=== PATIENT | female | born 1940 | race Caucasian/White ===

== ENCOUNTER → 2016-11-14 | Outpatient (REF) | payer MEDICARE, MEDICAID ==
[~2016-11-14] MED LIST: /WARF25TA OR; ACET65TA OR; BACITAB3 PO; CHLO50TA PO; CIPR500T89 PO; FERR325T PO; FLAG500T PO; FLEXERIL OR; LISI-538 PO; LISI40TA OR; PANT40TA2 PO; PERC7.5T8 OR; SIMV40TA2 OR; SIMV40TA2 PO; SUCR1TAB56 PO; VITA10002 PO; VITA100066 PO; ZETI10TA OR; chlorthalidone OR
== END | disposition home or self-care (01) ==
LOC: M LAB REF 13:26
PROVIDERS: ATTEND Internal Medicine Medical Oncology
DX: C48.1 Malignant neoplasm of specified parts of peritoneum (principal)

== ENCOUNTER → 2016-11-21 | Outpatient (CLI) | payer MEDICARE, MEDICAID ==
--- NOTE | 2016-11-21 13:18 | REP ---
Abdominal series: Three views. History: Question obstruction. C. diff enteritis. Comparison study March 12, 2016. Findings: Upright chest radiograph shows an Xvemhx-J-Nqvf catheter via the right side with its tip in the expected location of the superior vena cava. The lungs are well inflated and clear. No infiltrate or free subdiaphragmatic air is seen. Heart size is normal. Supine and erect views of the abdomen show clips in right upper quadrant of the abdomen, sutures in the central pelvis, and a dystrophic calcification in the left upper quadrant unchanged from comparison radiographs. No large or small bowel dilation is seen. There are a few small colonic air fluid levels on the upright radiograph. No evidence of free air. Impression: Unremarkable bowel gas pattern. Postoperative changes. No evidence of obstruction. Signed by Javier Blevins MD 11/21/2016 02:59 P
== END ==
LOC: M LAB 12:17
PROVIDERS: ATTEND Internal Medicine Medical Oncology
DX: R10.813 Right lower quadrant abdominal tenderness (principal); R19.7 Diarrhea, unspecified; C48.2 Malignant neoplasm of peritoneum, unspecified

== ENCOUNTER → 2016-11-22 | Outpatient (REF) | payer MEDICARE, MEDICAID | LOC: M LAB REF 14:58 | PROVIDERS: ATTEND Internal Medicine Medical Oncology | DX: R19.7 Diarrhea, unspecified (principal) ==

== ENCOUNTER 2016-12-02 10:58 | Outpatient (CLI) | payer MEDICARE, MEDICAID ==
[~2016-12-02] VITALS: Ht 167.6 cm; Wt 96.6 kg
[~2016-12-02 10:58] MED LIST changes: +SODIUM CHLORIDE 0.9% INJ 10 ML SYR IV SCH
[2016-12-02] MEDS ORDERED: diphenhydrAMINE 50 MG CAP PO ONE (11:15)
[2016-12-02] MEDS ORDERED: ACETAMINOPHEN TAB 650MG DOSE (2X325MG) PO ONE (11:15)
== END 2016-12-02 15:00 | disposition home or self-care (01) ==
LOC: M INFU 10:58
PROVIDERS: ATTEND Internal Medicine Medical Oncology
DX: C56.9 Malignant neoplasm of unspecified ovary (principal); Z79.899 Other long term (current) drug therapy
CPT/HCPCS: 36415; 36430; 86850; 86900; 86901; 86920; P9016

== ENCOUNTER → 2016-12-05 | Outpatient (REF) | payer MEDICARE, MEDICAID ==
[~2016-12-05] MED LIST changes: -SODIUM CHLORIDE 0.9% INJ 10 ML SYR IV SCH
== END ==
LOC: M LAB REF 13:06
PROVIDERS: ATTEND Internal Medicine Medical Oncology
DX: C48.1 Malignant neoplasm of specified parts of peritoneum (principal)

== ENCOUNTER → 2016-12-26 | Outpatient (CLI) | payer MEDICARE, MEDICAID ==
[~2016-12-26] MED LIST changes: +GASTROGRAFIN SOLUTION 30ML (Q9963) As Ordered ONE; +ISOVUE-370 76% 100ML VIAL (Q9967) As Ordered ONE
--- NOTE | 2016-12-26 11:52 | REP ---
CT ABDOMEN AND PELVIS WITHOUT AND WITH IV CONTRAST: WITH ORAL CONTRAST. HISTORY: Ovarian carcinoma, reassessment. Comparison CT study is from June 27, 2016. CT CONTRAST DOSE: 100 mL of Isovue-[address] FINDINGS: Digital preliminary banner painter radiograph shows clips in the right upper quadrant post cholecystectomy. Bowel gas pattern is normal. The lung bases reveal two left lower lobe peripheral pleural-based nodular densities measuring 7 and 6 mm, respectively in greatest diameter. These are visible and are unchanged when compared with the March 04, [address] [facility]. Lung bases are otherwise clear. No pleural effusion is seen. The liver and the spleen are normal in size and homogeneous in texture on pre- and postcontrast CT imaging. There are clips in the gallbladder fossa. There is an annular peripherally calcified 1.1 x 1.4 cm area at the splenic hilus on the left, consistent with a small splenic artery aneurysm. This is unchanged. No pancreatic lesion is seen. The right pericaval tunde mass at the level of the renal vascular pedicle is again seen. This measures 5.2 x 3.1 x 6.3 cm in overall dimension. On the previous scan of 06/27/2016 by my measurement, the lesion was 5.7 x 3.2 x 6.6 cm. No other retroperitoneal tunde mass is seen. There are two simple cysts in the right kidney as before. No hydronephrosis or renal mass is seen. There is no evidence of diffuse ascites. Small and large intestinal bowel loops are unremarkable in the abdomen and pelvis other than left colonic diverticulosis. There are fibroid changes in the uterus. No adnexal mass or cyst is seen. No pelvic mass or adenopathy is observed. Bone window settings show no bony destructive lesion. There are degenerative changes in the lumbar spine. IMPRESSION: The right retroperitoneal tunde mass persists although, perhaps, very slightly smaller than on June 27, [address]; 6.2 cm in greatest dimension. Left colonic diverticulosis. Postcholecystectomy. Right renal cysts. No other evidence of intra-abdominal or pelvic neoplastic disease. Signed by Javier Blevins MD 12/26/2016 01:31 P
== END ==
LOC: M RAD 08:44
PROVIDERS: ATTEND Internal Medicine Medical Oncology
DX: C56.9 Malignant neoplasm of unspecified ovary (principal); R91.8 Other nonspecific abnormal finding of lung field; I72.8 Aneurysm of other specified arteries; N28.1 Cyst of kidney, acquired; K57.90 Diverticulosis of intestine, part unspecified, without perforation or abscess without bleeding; D25.9 Leiomyoma of uterus, unspecified
CPT/HCPCS: 74178; Q9963; Q9967

== ENCOUNTER → 2016-12-31 | Outpatient (REF) | payer MEDICARE, MEDICAID ==
[~2016-12-31] MED LIST changes: -GASTROGRAFIN SOLUTION 30ML (Q9963) As Ordered ONE; -ISOVUE-370 76% 100ML VIAL (Q9967) As Ordered ONE
== END ==
LOC: M LAB REF 12:18
PROVIDERS: ATTEND Internal Medicine Medical Oncology
DX: C56.9 Malignant neoplasm of unspecified ovary (principal); C79.9 Secondary malignant neoplasm of unspecified site

== ENCOUNTER → 2017-01-07 | Outpatient (REF) | payer MEDICARE, MEDICAID | LOC: M LAB REF 12:52 | PROVIDERS: ATTEND Internal Medicine Medical Oncology | DX: C48.2 Malignant neoplasm of peritoneum, unspecified (principal) ==

== ENCOUNTER → 2017-01-13 | Outpatient (CLI) | payer MEDICARE, MEDICAID ==
[2017-01-13 18:39] LABS: CALCIUM LEVEL 9.1 MG/DL (8.8-10.2); CREATININE FOR GFR 1.38 MG/DL (0.55-1.02); GLOMERULAR FILTRATION RATE 39.6 (>39); POTASSIUM SERUM 3.3 MEQ/L (3.5-5.1)
== END ==
LOC: M SMT 11:24
PROVIDERS: ATTEND Urology
DX: N18.9 Chronic kidney disease, unspecified (principal)
CPT/HCPCS: 36415; 80048; G0463

== ENCOUNTER → 2017-01-15 | Outpatient (CLI) | payer MEDICARE, MEDICAID ==
--- NOTE | 2017-01-15 09:42 | REP ---
RENAL NUCLEAR SCAN WITH FLOW AND FUNCTION: Following the intravenous administration of 8.4 mCi of technetium-99m MAG 3, immediate flow images are obtained in the posterior projections showing somewhat greater degree of profusion of the right kidney compared to the left. Delayed renal function images are performed every minute for a period of 30 minutes in the posterior projection. Photopenic area in the lower pole of the right kidney is compatible with a cyst. This is seen on the CT of 12/26/2016. There is mild cortical uptake and excretion with no hydronephrosis. Split function is 40.9% on the left and 59.1% on the right. Time to peak is 3 minutes bilaterally. T1/2 on the left is 10.6 minutes and on the right is 14.1 minutes. Renal function curves are slightly shallow in their downward slopes. There is very mild postvoid residual in the urinary bladder after voiding. IMPRESSION: Minimally compromised renal function without urinary tract obstruction. Signed by Bin Barnhart MD 01/15/2017 12:42 P
== END ==
LOC: M RAD 07:45
PROVIDERS: ATTEND Urology
DX: N18.9 Chronic kidney disease, unspecified (principal)
CPT/HCPCS: 78707; A9562

== ENCOUNTER → 2017-02-19 | Outpatient (CLI) | payer MEDICARE, MEDICAID ==
[~2017-02-19] MED LIST changes: +CHLO25TA PO; +OXYC1TAB23 PO; +TYLE325T5 PO
--- NOTE | 2017-02-19 15:00 | REP ---
Chest two views HISTORY: Abdominal swelling Comparison: 03/12/2016 The lungs are clear. The heart is normal in size. The pulmonary vasculature is normal in appearance. Degenerative change is present in the thoracic spine. An Dchcbo-L-Hbtj catheter is present. IMPRESSION: No acute disease. Signed by Marco Shields MD 02/19/2017 02:51 P
[2017-02-19 20:00] LABS: MEAN CORPUSCULAR HEMOGLOBIN 31.6 pg (27.0-33.0); MEAN CORPUSCULAR HGB CONC 31.8 g/dl (32.0-36.5); MEAN CORPUSCULAR VOLUME 99.2 fl (80.0-96.0); RED CELL DISTRIBUTION WIDTH 12.9 % (11.5-14.5); WHITE BLOOD COUNT 6.6 K/mm3 (4.0-10.0)
[2017-02-19 20:02] LABS: INR 0.97
[2017-02-19 21:10] LABS: ALBUMIN 3.8 GM/DL (3.2-5.2); ALBUMIN/GLOBULIN RATIO 1.31 (1.00-1.93); BILIRUBIN,TOTAL 0.4 MG/DL (0.2-1.0); CALCIUM LEVEL 9.3 MG/DL (8.8-10.2); CREATININE FOR GFR 1.25 MG/DL (0.55-1.02); GLOMERULAR FILTRATION RATE 44.4 (>39); POTASSIUM SERUM 3.6 MEQ/L (3.5-5.1); TOTAL PROTEIN 6.7 GM/DL (6.4-8.2)
== END ==
LOC: M ADAMS 14:24
PROVIDERS: ATTEND Urology
DX: Z01.818 Encounter for other preprocedural examination (principal); R19.00 Intra-abdominal and pelvic swelling, mass and lump, unspecified site; Z79.899 Other long term (current) drug therapy
CPT/HCPCS: 36415; 71020; 80053; 85027; 85610; 85730; G0463

== ENCOUNTER → 2017-02-25 | Outpatient (CLI) | payer MEDICARE, MEDICAID ==
[~2017-02-25] MED LIST changes: +ISOVUE-370 76% 100ML VIAL (Q9967) As Ordered ONE; -OXYC1TAB23 PO; -TYLE325T5 PO
--- NOTE | 2017-02-25 17:27 | REP ---
CT ABDOMEN: REASON FOR EXAM: Followup mass. PRIOR EXAMINATION: 12/26/2016 was reviewed. CONTRAST UTILIZED: 100 mL Isovue-370. The lung bases are unchanged. There is a 6 mm sized nodule in the anterior basal segment of the left lower lobe laterally and there is an unchanged 3 mm sized nodule in the posterior basal segment of the right lower lobe. There are no pleural or pericardial effusions. The precontrast enhanced portion of the examination shows no change appearance of the hepatic or splenic densities. There are no nephroliths. The patient is status-post cholecystectomy. Contrast enhanced portion of the examination shows the liver and spleen to be unchanged. The pancreas is atrophic but unchanged. The adrenal glands and kidneys are unchanged. Bosniak class 1 right renal cyst are noted status quo. The abdominal aorta is unchanged. Once again, there is a retroperitoneal mass which is completely unchanged. This right sided retroperitoneal mass displaces anterior the right renal artery status quo. There are no new retroperitoneal masses. The bowel loops and their mesenteries and are again seen to be within normal limits. There is no free fluid or free air. CT PELVIS: Once again, calcific myomatous changes are seen in the uterus status quo. There is no evidence of pelvic side wall adenopathy. The bowel loops and their mesenteries are essentially unchanged remain within normal limits. There is no free fluid or free air. Bone window technique throughout the exam shows no change in the osseous structures. Spinal degenerative changes status quo. IMPRESSION:No significant change when compared to the prior exam with findings and retroperitoneal mass as described above. Signed by Zachery Amaya DO 02/26/2017 11:07 A
== END ==
LOC: M RAD 13:06
PROVIDERS: ATTEND Urology
DX: R19.00 Intra-abdominal and pelvic swelling, mass and lump, unspecified site (principal); R91.8 Other nonspecific abnormal finding of lung field; N28.1 Cyst of kidney, acquired
CPT/HCPCS: 74178; Q9967

== ENCOUNTER 2017-03-03 05:40 | Inpatient (IN) | payer MEDICARE, MEDICAID ==
[~2017-03-03] VITALS: Ht 167.6 cm; Wt 71.7 kg
[~2017-03-03 05:40] MED LIST changes: -ISOVUE-370 76% 100ML VIAL (Q9967) As Ordered ONE
[2017-03-03] MEDS ORDERED: LR 1,000 ML IV ONE (06:00)
[2017-03-03] MEDS ORDERED: BUPIVACAINE HCL 0.25% 30 ML VIAL As Ordered ONE (06:37)
[2017-03-03] MEDS ORDERED: LIDOCAINE 1% SDV INJ 30 ML VIAL As Ordered ONE (06:37)
[2017-03-03] MEDS ORDERED: LIDOCAINE 2% INJ 100 MG/5 ML SDV (FOR ANES.) As Ordered ONE (06:50)
[2017-03-03] MEDS ORDERED: ROCURONIUM BROMIDE 50 MG/5 ML VIAL As Ordered ONE ×2 (06:50→08:37)
[2017-03-03] MEDS ORDERED: PROPOFOL 200 MG/20 ML VIAL As Ordered ONE (06:50)
[2017-03-03] MEDS ORDERED: fentaNYL 250 MCG/5 ML INJECTION (J3010) As Ordered ONE (06:50)
[2017-03-03] MEDS ORDERED: MIDAZOLAM INJ 2 MG/2 ML VIAL (J2250) As Ordered ONE (06:50)
[2017-03-03] MEDS ORDERED: MORPHINE 2 MG/ML 1ML SYRINGE IV PRN (07:30)
[2017-03-03] MEDS ORDERED: ONDANSETRON 4MG/2ML VIAL (J2405) IV PRN ×2 (07:30→14:15)
[2017-03-03] MEDS ORDERED: ACETAMINOPHEN TAB 650MG DOSE (2X325MG) PO PRN (07:30)
[2017-03-03] MEDS ORDERED: PERCOCET 5MG/325MG TAB PO PRN (07:30)
[2017-03-03] MEDS: DOCUSATE SODIUM 100 MG CAP PO SCH ×2 (09:00→21:30)
[2017-03-03] MEDS ORDERED: fentaNYL 100 MCG/2 ML INJECTION (J3010) As Ordered ONE ×2 (10:13→14:03)
[2017-03-03] MEDS ORDERED: ePHEDrine SULFATE 25 MG/5 ML(5MG/ML) SYRINGE As Ordered ONE (10:52)
[2017-03-03] MEDS ORDERED: PHENYLephrine HCL 500 MCG/5 ML (100MCG/ML) SYRINGE (J2370) As Ordered ONE (10:53)
[2017-03-03] MEDS ORDERED: GLYCOPYRROLATE INJ 0.2 MG/ML 2 ML VIAL As Ordered ONE (12:36)
[2017-03-03] MEDS ORDERED: ONDANSETRON 4MG/2ML VIAL (J2405) As Ordered ONE (12:36)
[2017-03-03] MEDS ORDERED: NEOSTIGMINE 1MG/ML 5 ML SYRINGE (J2710) As Ordered ONE (12:36)
[2017-03-03] MEDS ORDERED: HYDROmorphone HCL 1 MG/ML SYRINGE (J1170) As Ordered ONE (13:44)
[2017-03-03] MEDS: HYDROmorphone HCL 1 MG/ML SYRINGE (J1170) IV PRN ×5 (13:45→14:05)
[2017-03-03] MEDS ORDERED: METOCLOPRAMIDE INJ 10MG/2ML VIAL (J2765) As Ordered ONE (14:03)
[2017-03-03] MEDS: fentaNYL 100 MCG/2 ML INJECTION (J3010) IV PRN ×4 (14:05→14:20)
--- NOTE | 2017-03-03 14:11 | ROOPDOC ---
[facility] Report Of Operation Report of Operation DATE OF PROCEDURE: 03/03/17 PREPROCEDURE DIAGNOSIS: Retroperitoneal Mass POSTPROCEDURE DIAGNOSIS: Retroperitoneal Mass PROCEDURE: Robotic-assisted Laparoscopic Excision of Retroperitoneal Lymph Node , Laparoscopic Lysis of Adhesions SURGEON: Keaton Nguyen MD LEGAL FINANCIAL SPECIALIST: Ana Maria Louis NP ANESTHESIA: General OPERATIVE INDICATIONS: This is a 76 year old female who with a history of metastatic ovarian carcinoma. She was found to have a 6cm paracaval mass, which did not respond to chemotherapy. After a discussion with her medical oncologist and gynecologic oncologist, it was recommended that she undergo surgical excision of this mass, given concern that it is a metastatic lesion. DESCRIPTION OF PROCEDURE: The patient was brought to the operating room and general anesthesia was induced. Prophylactic antibiotics were infused. A Blanco catheter was placed under sterile conditions. The patient was then placed in the left lateral decubitus position. All pressure points were appropriately padded and an axillary roll was placed. She was secured to the table with tape. The patient was then prepped and draped in the usual sterile fashion. The initial incision was for a 12 mm port in line with the 11th rib along the lateral rectus margin. A Veress needle was then utilized to achieve the pneumoperitoneum. A 12 mm port was then placed in through this incision and through which the camera was inserted. There were no injuries from Veress needle placement or initial trocar placement. A 5mm assistant commissioner port was placed just cephalad to the camera port, along the lateral rectus margin. I was not able to place any of the other ports under direct vision because of a moderate amount of omental adhesions to the abdominal wall. I then performed an extensive laparoscopic lysis of adhesions. Once this was done the abdominal wall was clear for insertion of the remaining ports. The right hand robotic port was placed along the costal margin. Another 5 mm port was placed just inferior to the xyphoid for access for a liver retractor. The 15 mm assistant commissioner port was placed just inferior to the camera port, also on the lateral rectus margin. The left hand robotic port was placed between the anterior-superior iliac spine and the umbilicus. The robot was then docked. We began by lifting up the liver with a laparoscopic locking Allis clamp. Next the right colon was dissected off of Gerota's fascia. We then Kocherized the duodenum. At this point the inferior vena cava (IVC) was identified. The paracaval node was readily seen just lateral to the IVC and under the right kidney. The gonadal vein was then ligated with Weck clips and transected in between. The node was then carefully dissected away from the IVC and the renal vein. While dissecting the node away from the renal vein, an incidental puncture was made into the side of the vein. This was closed with a 4-0 PDS suture in a [id number] fashion. Hemostasis was excellent after this point. On the inferior portion of the node a small vein and artery were identified. These were ligated Weck clips and then they were transected. We continued to dissect the lymph node on all sides using a combination of cold scissors and electrocautery until the node was completely free. The node was then placed in an Endocatch bag. Once done we checked for hemostasis and it appeared good. The surgical field was thoroughly irrigated and all the irrigation was suctioned out. We then placed Mike hemostatic agent along the lateral aspect of the IVC and in the area of the renal hilum. The robot was then undocked. We then used a Cade-Maru fascial closure device to place a #0 Vicryl free tie through the fascia of the 12 mm camera port site. The 15 mm assistant commissioner port site was then extended and we dissected down onto the fascia. The fascia was extended a little and the specimen was removed from the abdomen. It was then handed off the table to be sent for pathologic analysis. We then closed the fascia of the extraction incision using a running #0 Vicryl suture. At this point, the abdomen was reinsufflated and we looked back in with the camera and there was no bleeding underneath the extraction site. No abdominal contents were caught within the closure either. We then removed all the ports under direct vision and there was no bleeding from any of the port sites. At this point, the previously placed #0 Vicryl free tie was tied down and all the incisions were thoroughly irrigated. The subcutaneous tissue of the extraction incision was then reapproximated using interrupted #3-0 Vicryl suture. We then closed the skin of each site using a running #4-0 subcuticular Monocryl stitch. Local anesthetic was then applied to each incision and Dermabond was then applied and this marked the conclusion of the procedure. The patient was then taken out of the left lateral decubitus position, awakened from anesthesia and transported to the recovery room in stable condition. ESTIMATED BLOOD LOSS: 100 mL INTRAOPERATIVE COMPLICATIONS: None SPECIMENS: Retroperitoneal Mass PLAN: The patient will be admitted to the hospital postoperatively and she will be discharged home she is tolerating regular diet and when her pain is controlled. KEATON NGUYEN MD March 03, 2017 14:11
[2017-03-03] MEDS ORDERED: METOCLOPRAMIDE INJ 10MG/2ML VIAL (J2765) IV PRN (14:15)
[2017-03-03] MEDS ORDERED: MEPERIDINE INJ 25 MG/ML VIAL (J2175) IV PRN (14:15)
[2017-03-03] MEDS ORDERED: LR 1,000 ML IV SCH (14:15)
[2017-03-03 14:25] LABS: CALCIUM LEVEL 8.3 MG/DL (8.8-10.2); CREATININE FOR GFR 1.2 MG/DL (0.55-1.02); GLOMERULAR FILTRATION RATE 46.5 (>39)
[2017-03-03] MEDS ORDERED: HYDROmorphone HCL 1 MG/ML SYRINGE (J1170) IV PRN (14:45)
[2017-03-03 14:48] LABS: MEAN CORPUSCULAR HEMOGLOBIN 32.5 pg (27.0-33.0); MEAN CORPUSCULAR HGB CONC 33.2 g/dl (32.0-36.5); MEAN CORPUSCULAR VOLUME 97.9 fl (80.0-96.0); RED CELL DISTRIBUTION WIDTH 12.4 % (11.5-14.5); WHITE BLOOD COUNT 5.8 K/mm3 (4.0-10.0)
[2017-03-03 15:45] VITALS: BP 112/53
[2017-03-03] MEDS: NS 1,000 ML IV SCH (16:07)
[2017-03-03] MEDS: ceFAZolin SOD 1 GM in D5W MINI-BAG PLUS 50 ML IV SCH (16:07)
[2017-03-03 16:15] VITALS: BP 102/45
[2017-03-03 17:15] VITALS: BP 93/45
[2017-03-03 18:15] VITALS: BP 92/46
[2017-03-03 19:15] VITALS: BP 89/42
[2017-03-03] MEDS: SIMVASTATIN 40 MG TAB PO SCH (21:31)
[2017-03-03 22:00] VITALS: BP 88/40
[2017-03-04] VITALS (7 sets, daily range): BP systolic 80–105; BP diastolic 32–55
[2017-03-04] MEDS: ceFAZolin SOD 1 GM in D5W MINI-BAG PLUS 50 ML IV SCH (01:47)
[2017-03-04] MEDS: NS 1,000 ML IV SCH ×3 (01:48→16:26)
[2017-03-04 07:02] LABS: MEAN CORPUSCULAR HGB CONC 32.1 g/dl (32.0-36.5); MEAN CORPUSCULAR VOLUME 99.7 fl (80.0-96.0); RED CELL DISTRIBUTION WIDTH 12.4 % (11.5-14.5); WHITE BLOOD COUNT 4.3 K/mm3 (4.0-10.0)
[2017-03-04 07:27] LABS: CALCIUM LEVEL 7.8 MG/DL (8.8-10.2); CREATININE FOR GFR 1.13 MG/DL (0.55-1.02); GLOMERULAR FILTRATION RATE 49.8 (>39); POTASSIUM SERUM 3.5 MEQ/L (3.5-5.1)
[2017-03-04] MEDS ORDERED: MORPHINE 2 MG/ML 1ML SYRINGE IV PRN (08:00)
[2017-03-04] MEDS: DOCUSATE SODIUM 100 MG CAP PO SCH ×2 (08:09→20:27)
[2017-03-04] MEDS: PERCOCET 5MG/325MG TAB PO PRN ×2 (08:10→16:56)
--- NOTE | 2017-03-04 08:53 | IPNPDOC ---
Assessment/Plan Date Seen The patient was seen on 03/04/17. Patient Summary This is a 76 y/o F POD1 s/p robotic excision of a retroperitoneal mass. Other than low BP, she is doing well. Her Hb trended down a little as expected from hemodilution. UOP has been good. Cr is stable. Plan/VTE VTE Prophylaxis Ordered?: Yes VTE Exclusion Mechanical Proph: N/A:VTE Prophy Ordered Plan/Urinary Catheter Urinary Catheter: Other Catheter: (plan to d/c catheter once patient is stable ambulating (keeping in for now for low BP)) Plan - continue IVF - percocet prn pain w/ morphine for breakthrough - hold home diuretic until BP improved - strict I/Os - SCDs - ambulate w/ assistance - incentive spirometry -monitor BP closely - if no improvement by noon or if patient becomes symptomatic, will consult hospitalist service to evaluate - advance diet as tolerated Subjective Review oF Systems Chief Complaint The patient is a 76-year-old female admitted with a reason for visit of Retroperitoneal Mass. Events since Last Encounter No acute events o/n. Good pain control (has only had tylenol thus far). No n/ v. No chest pain or SOB. No f/c/ns. Objective Physical Examination General Exam: Alert, Cooperative, No Acute Distress ABDOMEN EXAM: Soft, Tenderness (appropriately tender over incisions), Other ( incisions clean/dry/intact) Psych Exam: Mental status NL, Mood NL Other physical findings catheter draining clear urine Vital Signs/I&O Vital Signs Date Time Temp Pulse Resp B/P (MAP) Pulse Ox O2 Delivery O2 Flow Rate FiO2 03/04/17 08:10 12 03/04/17 08:00 Room Air 03/04/17 06:00 98.3 66 88/42 (57) 100 2.0 I&O- Last 24 Hours up to 6 AM 03/04/17 06:00 Intake Total 7781 ml Output Total 1180 ml Balance 6601 ml Laboratory Data Labs 24H Laboratory Tests 2 03/03/17 13:44: Anion Gap 7L, Glomerular Filtration Rate 46.5, Blood Urea Nitrogen 27H, Creatinine 1.20H, Sodium Level 143, Potassium Level 4.0, Chloride Level 111H, Carbon Dioxide Level 25, Calcium Level 8.3L 03/03/17 20:31: Bedside Glucose (Misc Panel) 123H 03/04/17 06:39: Anion Gap 6L, Glomerular Filtration Rate 49.8, Blood Urea Nitrogen 24H, Creatinine 1.13H, Sodium Level 144, Potassium Level 3.5, Chloride Level 111H, Carbon Dioxide Level 27, Calcium Level 7.8L CBC/BMP Laboratory Tests 03/03/17 13:43 Red Blood Count 3.11 L, Mean Corpuscular Volume 97.9 H, Mean Corpuscular Hemoglobin 32.5, Mean Corpuscular Hemoglobin Concent 33.2, Red Cell Distribution Width 12.4 03/03/17 13:44 Calcium Level 8.3 L 03/04/17 06:39 Red Blood Count 2.76 L, Mean Corpuscular Volume 99.7 H, Mean Corpuscular Hemoglobin 32.0, Mean Corpuscular Hemoglobin Concent 32.1, Red Cell Distribution Width 12.4, Calcium Level 7.8 L FSBS Laboratory Tests Test 03/03/17 20:31 Range/Units Bedside Glucose (Misc Panel) 123 83-110 MG/DL KEATON NGUYEN MD March 04, 2017 08:53
[2017-03-04] MEDS: CHLORTHALIDONE 25 MG TAB PO SCH (08:56)
[2017-03-04] MEDS: SIMVASTATIN 40 MG TAB PO SCH (20:27)
[2017-03-05] MEDS: PERCOCET 5MG/325MG TAB PO PRN ×3 (01:10→15:39)
[2017-03-05 06:00] VITALS: BP 111/53
[2017-03-05 06:49] LABS: MEAN CORPUSCULAR HGB CONC 32.9 g/dl (32.0-36.5); MEAN CORPUSCULAR VOLUME 97.5 fl (80.0-96.0); RED CELL DISTRIBUTION WIDTH 12.5 % (11.5-14.5); WHITE BLOOD COUNT 3.6 K/mm3 (4.0-10.0)
[2017-03-05 07:01] LABS: CREATININE FOR GFR 1.19 MG/DL (0.55-1.02); GLOMERULAR FILTRATION RATE 46.9 (>39); POTASSIUM SERUM 3.7 MEQ/L (3.5-5.1)
--- NOTE | 2017-03-05 08:10 | IPNPDOC ---
Assessment/Plan Date Seen The patient was seen on 03/05/17. Patient Summary This is a 76 y/o F POD2 s/p robotic excision of a retroperitoneal mass. Her BP is better this morning w/ systolic in the 110s. UOP has been good and her Cr has been stable at 1.2. Her Hb has trended down to 7.9. Given her age and history of anemia, I recommended that we give her a unit of pRBC prior to discharge. Plan/VTE VTE Prophylaxis Ordered?: Yes VTE Exclusion Mechanical Proph: N/A:VTE Prophy Ordered Plan - transfuse 1u PRBC - continue home meds - percocet prn pain - recheck H&H after transfusion - ambulate - SCDs - incentive spirometry - discharge home today assuming H&H responds appropriately after transfusion Subjective Review oF Systems Chief Complaint The patient is a 76-year-old female admitted with a reason for visit of Retroperitoneal Mass. Events since Last Encounter No acute events o/n. Pain well-controlled w/ percocet. The patient ambulated well w/o difficulty. She voided well after the catheter was removed. No chest pain or SOB. No n/v. Objective Physical Examination General Exam: Alert, Cooperative, No Acute Distress ABDOMEN EXAM: Soft, Tenderness (appropriately tender over incisions), Other ( incisions clean/dry/intact) Psych Exam: Mental status NL, Mood NL Vital Signs/I&O Vital Signs Date Time Temp Pulse Resp B/P (MAP) Pulse Ox O2 Delivery O2 Flow Rate FiO2 03/05/17 06:00 100.0 78 18 111/53 (72) 96 Room Air 03/04/17 06:00 2.0 I&O- Last 24 Hours up to 6 AM 03/05/17 06:00 Intake Total 3165 ml Output Total 1150 ml Balance 2015 ml Laboratory Data Labs 24H Laboratory Tests 2 03/05/17 06:04: Anion Gap 6L, Glomerular Filtration Rate 46.9, Blood Urea Nitrogen 23H, Creatinine 1.19H, Sodium Level 144, Potassium Level 3.7, Chloride Level 109H, Carbon Dioxide Level 29, Calcium Level 8.0L CBC/BMP Laboratory Tests 03/05/17 06:04 Red Blood Count 2.47 L, Mean Corpuscular Volume 97.5 H, Mean Corpuscular Hemoglobin 32.0, Mean Corpuscular Hemoglobin Concent 32.9, Red Cell Distribution Width 12.5, Calcium Level 8.0 L KEATON NGUYEN MD March 05, 2017 08:10
[2017-03-05] MEDS: CHLORTHALIDONE 25 MG TAB PO SCH (08:24)
[2017-03-05] MEDS: DOCUSATE SODIUM 100 MG CAP PO SCH (08:24)
[2017-03-05] MEDS ORDERED: OXYC1TAB23 PO (12:11)
[2017-03-05] MEDS ORDERED: TYLE325T5 PO (12:11)
--- NOTE | 2017-03-06 13:01 | DSES ---
DATE OF ADMISSION: 03/03/2017 DATE OF DISCHARGE: 03/05/2017 ADMISSION DIAGNOSIS: Retroperitoneal mass. DISCHARGE DIAGNOSIS: Retroperitoneal mass. ADMITTING PHYSICIAN: Javier Gilbert MD DISCHARGING PHYSICIAN: Javier Gilbert MD PROCEDURE PERFORMED: Robotic-assisted laparoscopic removal of a retroperitoneal lymph node with laparoscopic lysis of adhesions on 03/03/2017. HISTORY OF PRESENT ILLNESS: This is a 76-year-old female who was admitted to the hospital after undergoing the above listed procedure. Postoperatively, she did well with the abnormality postoperatively being a low blood pressure on postoperative day one. By postoperative day two, her blood pressure had normalized. All of her laboratories remained within normal limits, except for her hemoglobin level which trended down to 7.9 on postoperative day two. Given the patient's age, we decided to give her a unit of red blood cells and her hemoglobin count responded appropriately afterwards. Her pain was well controlled by postoperative day two. She voided without any difficulty. She ambulated well and was tolerating a regular diet. She was therefore deemed ready for discharge on postoperative day two in good condition. We will have her followup with us in the clinic in approximately one week and she will maintain followup with her other physicians, including her medical oncologist, Dr. Alston.
== END 2017-03-05 15:55 | disposition home or self-care (01) | DRG 821 ==
LOC: M OR 05:40 → M MS5PR 15:20
PROVIDERS: ADMIT Urology; ATTEND Urology
PROC: 0DNS4ZZ (ICD-10-PCS; 2017-03-03)
PROC: 8E0W4CZ Robotic Assisted Procedure of Trunk Region, Percutaneous Endoscopic Approach (ICD-10-PCS; 2017-03-03)
PROC: 07TD4ZZ Resection of Aortic Lymphatic, Percutaneous Endoscopic Approach (ICD-10-PCS; principal; 2017-03-03 07:30)
PROC: 30233N1 Transfusion of Nonautologous Red Blood Cells into Peripheral Vein, Percutaneous Approach (ICD-10-PCS; 2017-03-05)
DX: C77.2 Secondary and unspecified malignant neoplasm of intra-abdominal lymph nodes (principal); C56.9 Malignant neoplasm of unspecified ovary

== ENCOUNTER → 2017-03-20 | Outpatient (REF) | payer MEDICARE, MEDICAID ==
[~2017-03-20] MED LIST changes: +OXYC1TAB23 PO; +TYLE325T5 PO
== END ==
LOC: M LAB REF 16:28
PROVIDERS: ATTEND Internal Medicine Medical Oncology
DX: C48.2 Malignant neoplasm of peritoneum, unspecified (principal)

== ENCOUNTER → 2017-04-30 | Outpatient (CLI) | payer MEDICARE, MEDICAID ==
[~2017-04-30] MED LIST changes: +BACITAB PO; -BACITAB3 PO; +CIPR-249 PO; -CIPR500T89 PO; +FERR1TAB8 PO; -FERR325T PO
--- NOTE | 2017-05-01 13:22 | REP ---
PET/CT: History: Restaging ovarian carcinoma. The patient is status post excision of a right retroperitoneal mass in February of 2017. Comparisons: Comparison CT study February 25, 2017. TECHNIQUE: 1 hour 5 minutes following the intravenous injection of a 9.5 mCi dose of F-18 FDG, three-dimensional PET scintigraphy is acquired from the skull base to the proximal thighs. Triplanar noncontrast CT scanning is acquired through the same anatomic range for attenuation correction, and image registration with scan parameters optimized to minimize radiation exposure to the patient. PET scintigraphy and CT datasets were fused and displayed on a workstation with multiplanar and projection display capability. PET/CT Findings: There is no abnormal hypermetabolic uptake within the pelvis or within the abdomen or retroperitoneum. There is a small cyst in the right kidney. There are clips in the gallbladder fossa. Normal hepatic, splenic, and gastrointestinal FDG accumulation is seen. No abnormal hypermetabolic uptake is seen within the thorax. An Iohzht-K-Tqxc catheter is noted. Head and neck soft tissues are unremarkable. No abnormal bony uptake is seen. Impression: Negative PET scintigraphy. Signed by Javier Blevins MD 05/01/2017 05:14 P
== END ==
LOC: M PLARAD 10:23
PROVIDERS: ATTEND Internal Medicine Medical Oncology
DX: C56.1 Malignant neoplasm of right ovary (principal)
CPT/HCPCS: 78815; A9552

== ENCOUNTER → 2017-05-07 | Outpatient (REF) | payer MEDICARE, MEDICAID | LOC: M LAB REF 13:23 | PROVIDERS: ATTEND Internal Medicine Medical Oncology | DX: C78.6 Secondary malignant neoplasm of retroperitoneum and peritoneum (principal); C56.9 Malignant neoplasm of unspecified ovary ==

== ENCOUNTER → 2017-05-20 | Outpatient (REF) | payer MEDICARE, MEDICAID ==
[2017-05-20 19:46] LABS: CALCIUM LEVEL 9.6 MG/DL (8.8-10.2); CREATININE FOR GFR 1.26 MG/DL (0.55-1.02); POTASSIUM SERUM 3.5 MEQ/L (3.5-5.1); URIC ACID 6.6 MG/DL (2.6-6.0)
[2017-05-20 20:35] LABS: MEAN CORPUSCULAR HEMOGLOBIN 30.7 pg (27.0-33.0); MEAN CORPUSCULAR HGB CONC 32.8 g/dl (32.0-36.5); MEAN CORPUSCULAR VOLUME 93.6 fl (80.0-96.0); RED CELL DISTRIBUTION WIDTH 13.2 % (11.5-14.5); WHITE BLOOD COUNT 5.3 K/mm3 (4.0-10.0)
== END ==
LOC: M SFHCADAM 15:08
PROVIDERS: ATTEND Physician Assistant
DX: M79.671 Pain in right foot (principal); M10.071 Idiopathic gout, right ankle and foot
CPT/HCPCS: 80048; 84550; 85027; G0463

== ENCOUNTER → 2017-06-25 | Outpatient (REF) | payer MEDICARE, MEDICAID | LOC: M LAB REF 13:40 | PROVIDERS: ATTEND Internal Medicine Medical Oncology | DX: C56.9 Malignant neoplasm of unspecified ovary (principal) ==

== ENCOUNTER → 2017-07-18 | Outpatient (REF) | payer MEDICARE, MEDICAID | LOC: M LAB REF 13:01 | PROVIDERS: ATTEND Internal Medicine Medical Oncology | DX: C56.9 Malignant neoplasm of unspecified ovary (principal); R82.99 Other abnormal findings in urine ==

== ENCOUNTER → 2017-07-22 | Outpatient (CLI) | payer MEDICARE, MEDICAID ==
--- NOTE | 2017-07-22 16:27 | REP ---
LIMITED BLADDER ULTRASOUND: HISTORY: Hematuria. There are no filling defects in the urinary bladder. The urinary bladder wall is thickened measuring 4.9 mm. Pre void volume is 377 cubic cm. There is no postvoid residual. IMPRESSION: There is thickening of the urinary bladder wall. Signed by Marco Shields MD 07/22/2017 04:32 P
== END ==
LOC: M RAD 13:41
PROVIDERS: ATTEND Internal Medicine Medical Oncology
DX: R31.9 Hematuria, unspecified (principal)

== ENCOUNTER → 2017-09-02 | Outpatient (REF) | payer MEDICARE, MEDICAID | LOC: M SFHCADAM 11:53 | PROVIDERS: ATTEND Physician Assistant | DX: M25.511 Pain in right shoulder (principal) | CPT/HCPCS: 20610; 85652; 86038; 86431; G0463 ==

== ENCOUNTER → 2017-09-05 | Outpatient (CLI) | payer MEDICARE, MEDICAID ==
[2017-09-05 14:29] LABS: BASO % 0.5 % (0.0-1.0); EOS # 0.1 10^3/uL (0.0-0.50); EOS % 1.7 % (0.0-3.0); IMMATURE GRANULOCYTE % 0.5 % (0-0); LYMPH # 2.6 10^3/uL (1.5-4.5); LYMPH % 34.7 % (24.0-44.0); MEAN CORPUSCULAR HEMOGLOBIN 29.6 pg (27.0-33.0); MEAN CORPUSCULAR HGB CONC 32.8 g/dl (32.0-36.5); MEAN CORPUSCULAR VOLUME 90.1 fl (80.0-96.0); MONO # 0.6 10^3/uL (0.0-0.8); MONO % 7.4 % (0.0-5.0); NEUTROPHILS # 4.2 10^3/uL (1.8-7.7); NEUTROPHILS % 55.2 % (36.0-66.0); PLATELET COUNT, AUTOMATED 207 10^3/uL (150-450); RED CELL DISTRIBUTION WIDTH 12.3 % (11.5-14.5); WHITE BLOOD COUNT 7.6 10^3/uL (4.0-10.0)
[2017-09-05 15:52] LABS: ERYTHROCYTE SEDIMENTATION RATE 14 mm/hr (0-30)
== END ==
LOC: M LAB 12:54
PROVIDERS: ATTEND Orthopaedic Surgery
DX: M25.562 Pain in left knee (principal)

== ENCOUNTER → 2017-09-10 | Outpatient (REF) | payer MEDICARE, MEDICAID | LOC: M LAB REF 17:32 | PROVIDERS: ATTEND Internal Medicine Medical Oncology | DX: C56.9 Malignant neoplasm of unspecified ovary (principal) ==

== ENCOUNTER → 2018-01-08 | Outpatient (REF) | payer MEDICARE, MEDICAID | LOC: M LAB REF 17:35 | DX: C56.9 Malignant neoplasm of unspecified ovary (principal) | CPT/HCPCS: 86304 ==

== ENCOUNTER → 2018-02-24 | Outpatient (CLI) | payer MEDICARE, MEDICAID ==
[~2018-02-24] MED LIST changes: -/WARF25TA OR; -ACET65TA OR; -BACITAB PO; -CHLO25TA PO; -CHLO50TA PO; -CIPR-249 PO; -FERR1TAB8 PO; -FLAG500T PO; -FLEXERIL OR; +GASTROGRAFIN SOLUTION 30ML (Q9963) As Ordered; +ISOVUE-370 76% 100ML VIAL (Q9967) As Ordered; -LISI-538 PO; -LISI40TA OR; -OXYC1TAB23 PO; -PANT40TA2 PO; -PERC7.5T8 OR; -SIMV40TA2 OR; -SIMV40TA2 PO; -SUCR1TAB56 PO; -TYLE325T5 PO; -VITA10002 PO; -VITA100066 PO; -ZETI10TA OR; -chlorthalidone OR
== END ==
LOC: M RAD 10:50
DX: C78.6 Secondary malignant neoplasm of retroperitoneum and peritoneum (principal)
CPT/HCPCS: Q9963

== ENCOUNTER → 2018-03-02 | Outpatient (REF) | payer MEDICARE, MEDICAID ==
[2018-03-03 11:17] LABS: CA 125 5.8 U/ML (<30.2)
== END ==
LOC: M LAB REF 13:34
DX: C78.6 Secondary malignant neoplasm of retroperitoneum and peritoneum (principal); C56.9 Malignant neoplasm of unspecified ovary
CPT/HCPCS: 86304

== ENCOUNTER → 2018-05-05 | Outpatient (CLI) | payer MEDICARE, MEDICAID | LOC: M PLARAD 10:31 | DX: C56.1 Malignant neoplasm of right ovary (principal) | CPT/HCPCS: 78815 ==

== ENCOUNTER → 2018-05-13 | Outpatient (REF) | payer MEDICARE, MEDICAID | LOC: M LAB REF 12:24 | DX: C48.2 Malignant neoplasm of peritoneum, unspecified (principal) | CPT/HCPCS: 88300 ==

== ENCOUNTER → 2018-06-01 | Outpatient (REF) | payer MEDICARE, MEDICAID | LOC: M LAB REF 13:08 | DX: C78.6 Secondary malignant neoplasm of retroperitoneum and peritoneum (principal); C56.9 Malignant neoplasm of unspecified ovary | CPT/HCPCS: 86304 ==

== ENCOUNTER → 2018-06-05 | Outpatient (REF) | payer MEDICARE, MEDICAID ==
[2018-06-05 12:31] LABS: ALBUMIN 3.6 GM/DL (3.2-5.2); ALBUMIN/GLOBULIN RATIO 1.24 (1.00-1.93); ALKALINE PHOSPHATASE 87 U/L (45-117); ALT/SGPT 15 U/L (12-78); ANION GAP 8 MEQ/L (8-16); AST/SGOT 7 U/L (7-37); BILIRUBIN,TOTAL 0.6 MG/DL (0.2-1.0); BLOOD UREA NITROGEN 21 MG/DL (7-18); CALCIUM LEVEL 8.8 MG/DL (8.8-10.2); CARBON DIOXIDE LEVEL 28 MEQ/L (21-32); CHLORIDE LEVEL 107 MEQ/L (98-107); CREATININE FOR GFR 1.56 MG/DL (0.55-1.30); GLOMERULAR FILTRATION RATE 34.3 (>39); GLUCOSE, FASTING 125 MG/DL (70-100); POTASSIUM SERUM 3.9 MEQ/L (3.5-5.1); SODIUM LEVEL 143 MEQ/L (136-145); TOTAL PROTEIN 6.5 GM/DL (6.4-8.2)
== END ==
LOC: M LABDRWAD 12:02
DX: E87.6 Hypokalemia (principal)
CPT/HCPCS: 80053

== ENCOUNTER → 2018-06-30 | Outpatient (CLI) | payer MEDICARE, MEDICAID | LOC: M RAD 11:58 | DX: C79.60 Secondary malignant neoplasm of unspecified ovary (principal); N28.1 Cyst of kidney, acquired; J98.4 Other disorders of lung ==

== ENCOUNTER → 2018-07-06 | Outpatient (REF) | payer MEDICARE, MEDICAID ==
[2018-07-07 13:51] LABS: CA 125 4.4 U/ML (<30.2)
== END ==
LOC: M LAB REF 17:30
DX: C78.6 Secondary malignant neoplasm of retroperitoneum and peritoneum (principal); C56.9 Malignant neoplasm of unspecified ovary
CPT/HCPCS: 86304

== ENCOUNTER → 2018-08-20 | Outpatient (REF) | payer MEDICARE, MEDICAID ==
[2018-08-20 13:24] LABS: ALBUMIN 3.6 GM/DL (3.2-5.2); ALBUMIN/GLOBULIN RATIO 1.24 (1.00-1.93); ALKALINE PHOSPHATASE 100 U/L (45-117); ALT/SGPT 13 U/L (12-78); ANION GAP 12 MEQ/L (8-16); AST/SGOT 8 U/L (7-37); BILIRUBIN,TOTAL 0.4 MG/DL (0.2-1.0); BLOOD UREA NITROGEN 30 MG/DL (7-18); CALCIUM LEVEL 8.9 MG/DL (8.8-10.2); CARBON DIOXIDE LEVEL 27 MEQ/L (21-32); CHLORIDE LEVEL 106 MEQ/L (98-107); CREATININE FOR GFR 1.59 MG/DL (0.55-1.30); GLOMERULAR FILTRATION RATE 33.5 (>39); GLUCOSE, FASTING 143 MG/DL (70-100); MAGNESIUM LEVEL 1.4 MG/DL (1.8-2.4); POTASSIUM SERUM 3.6 MEQ/L (3.5-5.1); SODIUM LEVEL 145 MEQ/L (136-145); TOTAL PROTEIN 6.5 GM/DL (6.4-8.2)
[2018-08-20 13:28] LABS: TOTAL 25(OH) VITAMIN D 28.7 NG/ML (30.0-100.0); VITAMIN B12 LEVEL > 2000.0 PG/ML
[2018-08-20 13:29] LABS: FOLATE 10.5 NG/ML
== END ==
LOC: M SFHCADAM 10:36
DX: N18.3 Chronic kidney disease, stage 3 (moderate) (principal); E53.8 Deficiency of other specified B group vitamins; E87.6 Hypokalemia; Z23 Encounter for immunization
CPT/HCPCS: 82746

== ENCOUNTER → 2018-08-28 | Outpatient (REF) | payer MEDICARE, MEDICAID ==
[2018-08-28 13:30] LABS: ANION GAP 10 MEQ/L (8-16); BLOOD UREA NITROGEN 20 MG/DL (7-18); CALCIUM LEVEL 8.6 MG/DL (8.8-10.2); CARBON DIOXIDE LEVEL 29 MEQ/L (21-32); CHLORIDE LEVEL 106 MEQ/L (98-107); CREATININE FOR GFR 1.42 MG/DL (0.55-1.30); GLOMERULAR FILTRATION RATE 38.1 (>39); GLUCOSE, FASTING 143 MG/DL (70-100); SODIUM LEVEL 145 MEQ/L (136-145)
== END ==
LOC: M SFHCADAM 10:45
DX: E83.42 Hypomagnesemia (principal)
CPT/HCPCS: 83735

== ENCOUNTER → 2018-09-11 | Outpatient (CLI) | payer MEDICARE, MEDICAID | LOC: M ADAMS 09:26 | DX: M51.36 Other intervertebral disc degeneration, lumbar region (principal); M51.37 Other intervertebral disc degeneration, lumbosacral region; M43.16 Spondylolisthesis, lumbar region; M12.88 Other specific arthropathies, not elsewhere classified, other specified site; M85.88 Other specified disorders of bone density and structure, other site; M54.5 Low back pain | CPT/HCPCS: 72110; 83735 ==

== ENCOUNTER → 2018-09-11 | Outpatient (REF) | payer MEDICARE, MEDICAID ==
[2018-09-11 13:18] LABS: HEMATOCRIT 34.2 % (36.0-47.0); HEMOGLOBIN 10.9 g/dl (12.0-15.5); MEAN CORPUSCULAR HEMOGLOBIN 30.5 pg (27.0-33.0); MEAN CORPUSCULAR HGB CONC 31.9 g/dl (32.0-36.5); MEAN CORPUSCULAR VOLUME 95.8 fl (80.0-96.0); PLATELET COUNT, AUTOMATED 201 10^3/uL (150-450); RED BLOOD COUNT 3.57 10^6/uL (4.00-5.40); RED CELL DISTRIBUTION WIDTH 14.5 % (11.5-14.5); WHITE BLOOD COUNT 24.5 10^3/uL (4.0-10.0)
[2018-09-11 13:20] LABS: ADD MORPHOLOGY? YES; POS COUNT POS FLAG; POSITIVE MORPH POS FLAG
[2018-09-11 13:23] LABS: ALBUMIN 3.2 GM/DL (3.2-5.2); ALBUMIN/GLOBULIN RATIO 1.28 (1.00-1.93); ALKALINE PHOSPHATASE 87 U/L (45-117); ALT/SGPT 15 U/L (12-78); ANION GAP 9 MEQ/L (8-16); AST/SGOT 8 U/L (7-37); BILIRUBIN,TOTAL 0.3 MG/DL (0.2-1.0); BLOOD UREA NITROGEN 31 MG/DL (7-18); CALCIUM LEVEL 9.2 MG/DL (8.8-10.2); CARBON DIOXIDE LEVEL 28 MEQ/L (21-32); CHLORIDE LEVEL 109 MEQ/L (98-107); CREATININE FOR GFR 1.47 MG/DL (0.55-1.30); GLOMERULAR FILTRATION RATE 36.6 (>39); GLUCOSE, FASTING 120 MG/DL (70-100); MAGNESIUM LEVEL 1.9 MG/DL (1.8-2.4); POTASSIUM SERUM 3.9 MEQ/L (3.5-5.1); SODIUM LEVEL 146 MEQ/L (136-145); TOTAL PROTEIN 5.7 GM/DL (6.4-8.2)
[2018-09-11 13:46] LABS: ADD MANUAL DIFFER YES
[2018-09-11 13:47] LABS: DIFF SLIDE NUMBER 160
[2018-09-11 13:50] LABS: ATYPICAL LYMPH 3 % (0-5); BANDS 21 % (< 11); EOSINOPHILS 2 % (0-5); LYMPHOCYTES 5 % (16-52); METAMYELOCYTES 1 % (0-0); MONOCYTES 9 % (0-8); NEUTROPHILS 59 % (35-75); PLATELET ESTIMATE NORMAL (NORMAL)
[2018-09-11 13:51] LABS: TOXIC GRANULATION 1+; TOXIC VACUOLATION 1+
== END ==
LOC: M SFHCADAM 09:18
DX: M54.5 Low back pain (principal); R07.89 Other chest pain
CPT/HCPCS: 83735

== ENCOUNTER → 2018-09-15 | Outpatient (REF) | payer MEDICARE, MEDICAID ==
[2018-09-15 11:21] LABS: ALBUMIN 3.3 GM/DL (3.2-5.2); ALBUMIN/GLOBULIN RATIO 1.32 (1.00-1.93); ALKALINE PHOSPHATASE 146 U/L (45-117); ALT/SGPT 17 U/L (12-78); ANION GAP 8 MEQ/L (8-16); AST/SGOT 13 U/L (7-37); BILIRUBIN,TOTAL 0.2 MG/DL (0.2-1.0); BLOOD UREA NITROGEN 16 MG/DL (7-18); C REACTIVE PROTEIN QUANTITATIV 1.68 MG/DL (0.00-0.30); CALCIUM LEVEL 8.7 MG/DL (8.8-10.2); CARBON DIOXIDE LEVEL 28 MEQ/L (21-32); CHLORIDE LEVEL 107 MEQ/L (98-107); CREATININE FOR GFR 1.44 MG/DL (0.55-1.30); GLOMERULAR FILTRATION RATE 37.5 (>39); GLUCOSE, FASTING 157 MG/DL (70-100); POTASSIUM SERUM 3.9 MEQ/L (3.5-5.1); SODIUM LEVEL 143 MEQ/L (136-145); TOTAL PROTEIN 5.8 GM/DL (6.4-8.2)
[2018-09-15 11:24] LABS: HEMATOCRIT 38.4 % (36.0-47.0); HEMOGLOBIN 12.1 g/dl (12.0-15.5); MEAN CORPUSCULAR HEMOGLOBIN 30.2 pg (27.0-33.0); MEAN CORPUSCULAR HGB CONC 31.5 g/dl (32.0-36.5); MEAN CORPUSCULAR VOLUME 95.8 fl (80.0-96.0); PLATELET COUNT, AUTOMATED 195 10^3/uL (150-450); RED BLOOD COUNT 4.01 10^6/uL (4.00-5.40); RED CELL DISTRIBUTION WIDTH 14.5 % (11.5-14.5); WHITE BLOOD COUNT 15.9 10^3/uL (4.0-10.0)
[2018-09-15 11:25] LABS: ADD MANUAL DIFFER YES; DIFF SLIDE NUMBER 199; POSITIVE MORPH POS FLAG
[2018-09-15 11:59] LABS: ATYPICAL LYMPH 4 % (0-5); BANDS 9 % (< 11); BASOPHILS 1 % (0-4); EOSINOPHILS 2 % (0-5); LYMPHOCYTES 9 % (16-52); MONOCYTES 2 % (0-8); NEUTROPHILS 73 % (35-75); PLATELET ESTIMATE NORMAL (NORMAL)
[2018-09-15 12:01] LABS: TOXIC GRANULATION 1+
[2018-09-15 14:48] LABS: ERYTHROCYTE SEDIMENTATION RATE 29 mm/hr (0-30)
== END ==
LOC: M SFHCADAM 09:36
DX: D72.825 Bandemia (principal)
CPT/HCPCS: 80053

== ENCOUNTER → 2018-09-25 | Outpatient (REF) | payer MEDICARE, MEDICAID ==
[2018-09-25 13:21] LABS: HEMATOCRIT 36.5 % (36.0-47.0); HEMOGLOBIN 11.7 g/dl (12.0-15.5); MEAN CORPUSCULAR HEMOGLOBIN 30.4 pg (27.0-33.0); MEAN CORPUSCULAR HGB CONC 32.1 g/dl (32.0-36.5); MEAN CORPUSCULAR VOLUME 94.8 fl (80.0-96.0); PLATELET COUNT, AUTOMATED 231 10^3/uL (150-450); RED BLOOD COUNT 3.85 10^6/uL (4.00-5.40); RED CELL DISTRIBUTION WIDTH 14.1 % (11.5-14.5); WHITE BLOOD COUNT 5.7 10^3/uL (4.0-10.0)
[2018-09-25 13:47] LABS: ANION GAP 11 MEQ/L (8-16); BLOOD UREA NITROGEN 24 MG/DL (7-18); CALCIUM LEVEL 9.4 MG/DL (8.8-10.2); CARBON DIOXIDE LEVEL 28 MEQ/L (21-32); CHLORIDE LEVEL 106 MEQ/L (98-107); CREATININE FOR GFR 1.49 MG/DL (0.55-1.30); GLUCOSE, FASTING 174 MG/DL (70-100); MAGNESIUM LEVEL 2.2 MG/DL (1.8-2.4); POTASSIUM SERUM 3.8 MEQ/L (3.5-5.1); SODIUM LEVEL 145 MEQ/L (136-145)
== END ==
LOC: M SFHCADAM 10:43
DX: D72.829 Elevated white blood cell count, unspecified (principal); N18.3 Chronic kidney disease, stage 3 (moderate); E83.42 Hypomagnesemia
CPT/HCPCS: 83735

== ENCOUNTER → 2018-09-30 | Outpatient (CLI) | payer MEDICARE, MEDICAID | LOC: M RAD 09:51 | DX: C56.9 Malignant neoplasm of unspecified ovary (principal); N28.1 Cyst of kidney, acquired; Z90.49 Acquired absence of other specified parts of digestive tract | CPT/HCPCS: Q9963 ==

== ENCOUNTER 2018-12-17 14:26 | Emergency (ER) | payer MEDICARE, MEDICAID ==
[~2018-12-17] VITALS: Ht 167.6 cm; Wt 97.3 kg
[~2018-12-17 14:26] MED LIST changes: +/WARF25TA OR; +ACET65TA OR; +BACITAB PO; +CHLO25TA PO; +CHLO50TA PO; +CIPR-249 PO; +FERR1TAB8 PO; +FLAG500T PO; +FLEXERIL OR; +GABA-843 PO; -GASTROGRAFIN SOLUTION 30ML (Q9963) As Ordered; -ISOVUE-370 76% 100ML VIAL (Q9967) As Ordered; +LISI-538 PO; +LISI40TA OR; +MAGN400T2 PO; +OXYC1TAB23 PO; +PANT40TA3 PO; +PERC7.5T8 OR; +SIMV40TA2 OR; +SIMV40TA2 PO; +SUCR1TAB56 PO; +TYLE325T5 PO; +VITA10002 PO; +VITA100066 PO; +ZETI10TA OR; +chlorthalidone OR
[2018-12-17 15:03] LABS: BASO # 0.1 10^3/uL (0.0-0.2); EOS # 0.2 10^3/uL (0.0-0.50); EOS % 2.8 % (0.0-3.0); HEMATOCRIT 34.8 % (36.0-47.0); HEMOGLOBIN 11.7 g/dl (12.0-15.5); LYMPH # 1.5 10^3/uL (1.5-4.5); LYMPH % 21.3 % (24.0-44.0); MEAN CORPUSCULAR HEMOGLOBIN 30.5 pg (27.0-33.0); MEAN CORPUSCULAR HGB CONC 33.6 g/dl (32.0-36.5); MEAN CORPUSCULAR VOLUME 90.9 fl (80.0-96.0); MONO # 0.4 10^3/uL (0.0-0.8); MONO % 5.5 % (0.0-5.0); NEUTROPHILS # 4.9 10^3/uL (1.8-7.7); NEUTROPHILS % 68.8 % (36.0-66.0); PLATELET COUNT, AUTOMATED 192 10^3/uL (150-450); RED BLOOD COUNT 3.83 10^6/uL (4.00-5.40); WHITE BLOOD COUNT 7.1 10^3/uL (4.0-10.0)
[2018-12-17 15:21] LABS: ALBUMIN 3.8 GM/DL (3.2-5.2); ALT/SGPT 13 U/L (12-78); BILIRUBIN,DIRECT < 0.1 MG/DL (0.0-0.2); BILIRUBIN,TOTAL 0.3 MG/DL (0.2-1.0); BLOOD UREA NITROGEN 28 MG/DL (7-18); CALCIUM LEVEL 9.1 MG/DL (8.8-10.2); CARBON DIOXIDE LEVEL 26 MEQ/L (21-32); CHLORIDE LEVEL 107 MEQ/L (98-107); CREATININE FOR GFR 1.47 MG/DL (0.55-1.30); GLOMERULAR FILTRATION RATE 36.6 (>39); GLUCOSE, FASTING 127 MG/DL (70-100); LIPASE 188 U/L (73-393); POTASSIUM SERUM 3.7 MEQ/L (3.5-5.1); SODIUM LEVEL 142 MEQ/L (136-145); TOTAL PROTEIN 6.5 GM/DL (6.4-8.2)
[2018-12-17] MEDS ORDERED: ISOVUE-370 76% 100ML VIAL (Q9967) As Ordered ONE (16:06)
--- NOTE | 2018-12-17 17:13 | REP ---
CT ABDOMEN PELVIS WITH IV CONTRAST ONLY: 12/17/2018. Comparison: 09/30/2018. Clinical history: Upper abdominal pain. History of ovarian carcinoma. Technique: The patient received a bolus of 100 mL Isovue 370 scanning through the abdomen pelvis with coronal and sagittal reconstructions. Findings: CT abdomen: Lung bases with no infiltrate or effusion. Heart is not grossly enlarged as no pericardial thickening or effusion. No hiatal hernia. Liver mildly enlarged with an 18.4 cm vertical diameter midclavicular line. Left hepatic lobe not grossly enlarged. There is no focal hepatic mass, cyst, intrahepatic biliary dilatation or adjacent ascites. Clips from prior cholecystectomy are noted. The pancreas shows no mass, abnormal ductal dilatation, calcification, peripancreatic fluid or adenopathy. Spleen is not enlarged and shows no focal lesion. Stomach with some retained fluid, but not distended abnormally adrenal glands are normal. The kidneys show interpolar cyst laterally on the right at 2.7 cm. 3.3 cm cyst in the lower pole on the right. No stone, solid mass, hydronephrosis or perinephric fluid. I see no hydroureter on either side. No ureteral stone. Small bowel loops were unremarkable. The abdominal portion of the colon shows cecum, right colon, both flexures and transverse colon unremarkable. There is diverticulosis from the splenic flexure into the left colon with some collapse of the mid left colon but no pericolonic inflammatory changes to suggest colitis or diverticulitis. Lung window review of all CT slices shows no perforation or free air in the abdomen. The bone windows show degenerative changes in the lower thoracic and lower lumbar spine and some facet arthropathy without acute finding. No periaortic adenopathy. There is a retrocaval node on the right 18 mm, unchanged. Best seen on image 52 of series 201. No pathologic sized retroperitoneal or mesenteric adenopathy nor infiltration of the mesentery/omental caking. CT pelvis: Sacrum, iliac bones, hips show degenerative changes without destructive lesion or fracture. Bladder is without mass or stone. There is no wall thickening. Pelvic phleboliths are seen. Distal small bowel loops are grossly unremarkable. The distal left colon, sigmoid and rectum show some scattered diverticula without signs of diverticulitis. Anastomotic sutures in the region of the sigmoid are again noted. There is no ventral or inguinal hernia nor pathologic sized inguinal adenopathy. Impression: 1. Stable CT. The 18 mm retrocaval node is unchanged from the CT of 09/30/2018. 2. There is no pancreatic, adrenal or renal solid mass. A few cysts in the right kidney unchanged. No pancreatitis. No ascites or abscess. 3. Mild prominence of the right hepatic lobe about 18 cm. Left hepatic lobe normal. No focal lesion. Prior cholecystectomy. 4. No definite sign of colitis or diverticulitis although there is diverticulosis in the left colon and splenic flexure. 5. Degenerative changes spine, unchanged. No aortic aneurysm or dissection. 6. Prior hysterectomy. No pelvis mass. Anastomotic sutures in the sigmoid. No new or acute finding. Electronically Signed by Kobi Bueno MD 12/17/2018 07:38 P
[2018-12-17 17:57] VITALS: BP 160/78
--- NOTE | 2018-12-21 20:39 | ED PDOC ---
Post-Departure Follow-Up perla rosas faxed formal report of ct abd/p for fu Rocky Reis MD Dec 21, 2018 20:39
== END 2018-12-17 17:59 | disposition home or self-care (01) ==
LOC: M ED 14:26
DX: R10.13 Epigastric pain (principal); I10 Essential (primary) hypertension; E78.5 Hyperlipidemia, unspecified; K52.9 Noninfective gastroenteritis and colitis, unspecified; N18.3 Chronic kidney disease, stage 3 (moderate); M54.9 Dorsalgia, unspecified; E66.9 Obesity, unspecified; H91.90 Unspecified hearing loss, unspecified ear; Z85.43 Personal history of malignant neoplasm of ovary; Z72.0 Tobacco use; R59.0 Localized enlarged lymph nodes; N28.1 Cyst of kidney, acquired; K57.30 Diverticulosis of large intestine without perforation or abscess without bleeding; M51.9 Unspecified thoracic, thoracolumbar and lumbosacral intervertebral disc disorder; Z79.899 Other long term (current) drug therapy
CPT/HCPCS: 74177; 80048; 80076; 81001; 83690; 85025; 99284; Q9967

== ENCOUNTER → 2018-12-31 | Outpatient (CLI) | payer MEDICARE, MEDICAID ==
[~2018-12-31] MED LIST changes: +OXYC-517 PO
--- NOTE | 2018-12-31 15:52 | REP ---
Bilateral hip study: Six views. History: Chronic pain. Comparison study: November 21, 2016. Findings: There are surgical sutures in the right pelvis. The bony pelvic ring appears intact. There is diffuse osteopenia. Osteoarthritic spurring is seen in the left hip mild in degree unchanged. Femoral heads are smooth and rounded. Hip joint spaces are preserved. There is some tendon insertion site spurring on the iliac crests bilaterally. Osteoarthritic facet disease is noted in the lower lumbar spine. Some mild degenerative sclerosis is seen in the SI joints. Impression: Left hip osteoarthritis. Diffuse osteopenia. Tendon insertion site spurring. Electronically Signed by Javier Blevins MD 12/31/2018 04:53 P
== END ==
LOC: M ADAMS 13:40
PROVIDERS: ATTEND Physician Assistant
DX: M16.12 Unilateral primary osteoarthritis, left hip (principal); M85.88 Other specified disorders of bone density and structure, other site; G89.29 Other chronic pain
CPT/HCPCS: 73521; 81002; G0463

== ENCOUNTER → 2019-01-02 | Outpatient (CLI) | payer MEDICARE, MEDICAID ==
--- NOTE | 2019-01-04 09:12 | REP ---
MR LUMBAR SPINE WITHOUT CONTRAST: HISTORY: Back pain. COMPARISON: 05/19/2015. Decreased signal intensity on T2-weighted images is present in the lumbar intervertebral discs. The L3-4 through L5-S1 intervertebral discs are decreased in height. These findings are consistent with disc degeneration. A diffuse disc bulge and small central disc extrusion are present at the T12-L1 level. There is minimal effacement of the thecal sac without spinal cord compression. A small left intraforaminal and lateral disc protrusion is present. There is posterolateral displacement of the left T12 nerve in the neural foramen. The right T12 nerve exits the neural foramen without compression. A diffuse disc bulge is present at the L1-2 level. There is minimal compression of the thecal sac. The L1 nerves exit the neural foramina without compression. There is no disc bulge or herniation at the L2-3 level. The L2 nerves exit the neural foramina without compression. A diffuse disc bulge is present at the L3-4 level. There is minimal compression of the thecal sac. There is hypertrophy of the posterior articulating facets. The L3 nerves exit the neural foramina without compression. A diffuse disc bulge is present at the L4-5 level. There is hypertrophy of the ligamenta flava and posterior articulating facets. There are 4 mm of grade 1 spondylolisthesis of L4 on 5. These findings produce minimal central canal stenosis. The L4 nerves exit the neural foramina without compression. A diffuse disc bulge is present at the L5-S1 level. There is minimal compression of the thecal sac. There is hypertrophy of the posterior articulating facets. The L5 nerves exit the neural foramina without compression. The conus medullaris is normal in appearance terminating at the level of the L1-2 intervertebral discs. Normal signal intensity is present in the lumbar vertebral bodies. IMPRESSION:1. Diffuse disc bulges at the L1-2, L3-4 and L5-S1 levels with minimal thecal sac compression. 2. Minimal central canal stenosis at the L4-5 level secondary to disc bulge, ligamentous and facet hypertrophy and grade 1 spondylolisthesis. Electronically Signed by Marco Shields MD 01/04/2019 09:50 A
== END ==
LOC: M RAD 12:52
PROVIDERS: ATTEND Physician Assistant
DX: G89.29 Other chronic pain (principal); M51.25 Other intervertebral disc displacement, thoracolumbar region; M51.26 Other intervertebral disc displacement, lumbar region; M48.061 Spinal stenosis, lumbar region without neurogenic claudication

== ENCOUNTER → 2019-01-29 | Outpatient (CLI) | payer MEDICARE, MEDICAID ==
[~2019-01-29] MED LIST changes: -/WARF25TA OR; +COUM1TAB18 OR; +GASTROGRAFIN SOLUTION 30ML (Q9963) As Ordered ONE
--- NOTE | 2019-01-29 14:52 | REP ---
Clinical: History of recurrent ovarian carcinoma. Technique: Axial noncontrast images from the lung bases to the pubic symphysis with coronal and sagittal re-formations. Comparison: 12/17/2018, 09/30/2018. Findings: Lung bases are clear. Liver, spleen, pancreas, bilateral adrenal glands and kidneys are normal / stable. Right renal cysts are again noted measuring up to 3.5 cm and remain stable. Evidence for prior cholecystectomy. The enteric system is without obstruction or acute inflammatory process. Colonic and sigmoid diverticulosis noted without acute diverticulitis. Evidence for prior partial resection and anastomoses at the mid sigmoid colon. Pelvis demonstrates normal bladder and evidence for prior hysterectomy. No pelvic fluid, mass, or adenopathy. Stable solitary retroperitoneal lymph node posterior to the IVC at the level of the right renal hilum is unchanged. No ascites. No free air. Osseous structures demonstrate degenerative changes without focal aggressive abnormality. Impression: 1. Stable right renal cysts. 2. Stable diverticulosis without acute diverticulitis. 3. Evidence for prior cholecystectomy, hysterectomy, and partial sigmoid resection. 4. Stable solitary retroperitoneal lymph node posterior to the IVC at the level of the renal pelvis. 4. No evidence for recurrence/metastatic disease or acute abdominopelvic pathology. Specifically, no ascites, adenopathy, or focal inflammatory changes. Electronically Signed by Frank Bowles MD 01/29/2019 02:43 P
== END ==
LOC: M RAD 12:14
PROVIDERS: ATTEND Internal Medicine Medical Oncology
DX: K57.92 Diverticulitis of intestine, part unspecified, without perforation or abscess without bleeding (principal); N28.1 Cyst of kidney, acquired; M54.5 Low back pain; R10.9 Unspecified abdominal pain; Z90.49 Acquired absence of other specified parts of digestive tract; Z90.710 Acquired absence of both cervix and uterus
CPT/HCPCS: 74176; Q9963

== ENCOUNTER → 2019-03-10 | Outpatient (CLI) | payer MEDICARE, MEDICAID ==
[~2019-03-10] MED LIST changes: -GASTROGRAFIN SOLUTION 30ML (Q9963) As Ordered ONE; +GNP650TA8 PO
--- NOTE | 2019-03-10 12:08 | REP ---
AP PELVIS, ONE VIEW: HISTORY: Right iliac pain. There is no acute fracture or dislocation. There is minimal narrowing of the joint spaces with associated sclerosis. Surgical clips are present in the pelvis. IMPRESSION: Degenerative change as described above. Electronically Signed by Marco Shields MD 03/10/2019 12:13 P
== END ==
LOC: M RAD 10:15
PROVIDERS: ATTEND Internal Medicine Medical Oncology
DX: M16.10 Unilateral primary osteoarthritis, unspecified hip (principal); R10.2 Pelvic and perineal pain; M54.5 Low back pain

== ENCOUNTER → 2019-05-11 | Outpatient (CLI) | payer MEDICARE, MEDICAID ==
[~2019-05-11] MED LIST changes: +CYAN100049 PO; -VITA10002 PO
--- NOTE | 2019-05-11 12:41 | REP ---
PET/CT: HISTORY: Monitoring response to treatment. Right ovarian carcinoma. COMPARISONS: Comparison PET/CT study April 05, 2018 and April 30, 2017. TECHNIQUE: 50 minutes following the intravenous injection of a 9.66 mCi dose of F-18 FDG, three-dimensional PET scintigraphy is acquired from the skull base to the proximal thighs. Triplanar noncontrast CT scanning is acquired through the same anatomic range for attenuation correction, and image registration with scan parameters optimized to minimize radiation exposure to the patient. PET scintigraphy and CT datasets were fused and displayed on a workstation with multiplanar and projection display capability. PET/CT FINDINGS: The previously noted hypermetabolic tunde focus in the right retrocaval region of the retroperitoneum is again seen. Maximum standard uptake value here today is 3.43, this was 4.99 on May 05, 2018. It has improved in avidity and is essentially unchanged in size. No new retroperitoneal or intra-abdominal hypermetabolic focus is seen. No abnormal pelvic hypermetabolic uptake is seen. Head and neck soft tissues are unremarkable. No abnormal hypermetabolic uptake is seen in the thorax. IMPRESSION: Hypermetabolic uptake persists in a small retrocaval lymph node in the retroperitoneum, decreased in avidity since the prior study, unchanged in size. No new hypermetabolic focus is seen. Electronically Signed by Javier Blevins MD 05/11/2019 03:02 P
== END ==
LOC: M PLARAD 09:25
PROVIDERS: ATTEND Internal Medicine Medical Oncology
DX: C56.1 Malignant neoplasm of right ovary (principal)
CPT/HCPCS: 78815; A9552

== ENCOUNTER → 2019-08-06 | Outpatient (REF) | payer MEDICARE, MEDICAID | LOC: M SFHCADAM 13:10 | PROVIDERS: ATTEND Physician Assistant | DX: M19.031 Primary osteoarthritis, right wrist (principal) | CPT/HCPCS: 36415; 84550; 90682; G0008; G0463 ==

== ENCOUNTER → 2019-09-14 | Outpatient (CLI) | payer MEDICARE, MEDICAID ==
--- NOTE | 2019-09-14 11:17 | REP ---
PET/CT: HISTORY: Restaging ovarian carcinoma. COMPARISONS: Comparison PET/CT study May 11, 2019 and May 05, 2018. April 30, 2017 study is reviewed as well. TECHNIQUE: 64 minutes following the intravenous injection of a 9.03 mCi dose of F-18 FDG, three-dimensional PET scintigraphy is acquired from the skull base to the proximal thighs. Triplanar noncontrast CT scanning is acquired through the same anatomic range for attenuation correction, and image registration with scan parameters optimized to minimize radiation exposure to the patient. PET scintigraphy and CT datasets were fused and displayed on a workstation with multiplanar and projection display capability. PET/CT FINDINGS: On today's PET CT study, the previously noted retrocaval tunde focus persists unchanged in size. It remains somewhat hypermetabolic. Maximum standard uptake value is 3.28 today. Maximum SUV value was 4.99 on May 05, 2018 and 3.43 on May 11, 2019. It is essentially unchanged. No other abnormal tunde uptake is seen in the abdomen or retroperitoneum. No abnormal hypermetabolic uptake is seen within the pelvis. No abnormal uptake in the liver. There is no abnormal hypermetabolic uptake in the head and neck soft tissues or in the thorax. IMPRESSION: Stable PET/CT findings since the May 11, 2019 prior study. There is mildly hypermetabolic tunde uptake in a 1.9 cm retrocaval lymph node in the retroperitoneum. Electronically Signed by Javier Blevins MD 09/14/2019 03:33 P
== END ==
LOC: M PLARAD 07:34
PROVIDERS: ATTEND Internal Medicine Medical Oncology
DX: C56.1 Malignant neoplasm of right ovary (principal); R59.0 Localized enlarged lymph nodes
CPT/HCPCS: 78815; A9552

== ENCOUNTER → 2019-10-15 | Outpatient (CLI) | payer MEDICARE, MEDICAID ==
[~2019-10-15] MED LIST changes: -SIMV40TA2 PO; +SIMV40TA20 PO
--- NOTE | 2019-10-15 13:28 | REP ---
Three-phase bone scan of the knees: History: Rule out loosening of hardware left knee. Technique: 20.9 mCi technetium 99m MDP is injected and standard three-phase imaging was acquired. Scintigraphic findings: The anterior and posterior flow study is normal. Photopenic areas associated with the left knee arthroplasty are seen on blood pool and delayed scan images. There is advanced arthritic uptake in the right knee, most pronounced in the lateral compartment. There is no evidence to suggest loosening or infection on the left. Impression: No evidence of loosening or infection status post left knee arthroplasty. Osteoarthritic uptake pattern right knee. Electronically Signed by Javier Blevins MD 10/15/2019 01:56 P
== END ==
LOC: M RAD 09:41
PROVIDERS: ATTEND Physician Assistant Surgical
DX: M17.11 Unilateral primary osteoarthritis, right knee (principal); M70.52 Other bursitis of knee, left knee
CPT/HCPCS: 78315; A9503

== ENCOUNTER → 2019-12-10 | Outpatient (CLI) | payer MEDICARE, MEDICAID ==
[~2019-12-10] MED LIST changes: +VITA100054 PO
--- NOTE | 2019-12-10 08:48 | REP ---
Clinical: Metastatic ovarian carcinoma. Restaging. Technique: Axial noncontrast images from the thoracic inlet to the upper abdomen with coronal and sagittal re-formations. Comparison: 09/30/2018. Findings: Bilateral lung cedeno are clear of mild chronic age-related interstitial changes and mild emphysematous changes are suggested. No consolidation, significant nodule, or mass lesion. No effusion. No pneumothorax. Tracheobronchial tree is patent. No obvious adenopathy. Mediastinum demonstrates relatively normal thoracic aorta, pulmonary vasculature and heart/pericardium. No pericardial effusion. [id number] identified with tip in the SVC. Surrounding musculoskeletal structures demonstrate degenerative changes without focal abnormality. Impression: Chronic age-related interstitial changes. No acute process. No evidence for metastatic disease. The Electronically Signed by Frank Bowles MD 12/10/2019 08:39 A
--- NOTE | 2019-12-10 08:53 | REP ---
Clinical: Metastatic ovarian carcinoma. Restaging. Technique: Axial noncontrast images from the lung bases to the pubic symphysis with coronal and sagittal re-formations. Comparison: 01/29/2019. Findings: Liver, spleen, atrophic pancreas, bilateral adrenal glands and left kidney are normal / stable. Right kidney again demonstrates to rounded hypodense lesions measuring 2.9 cm and 3.4 cm which remain stable and most compatible with cysts. 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 Evidence of prior cholecystectomy noted. The enteric system is without obstruction or acute inflammatory process. Colonic diverticula noted without acute diverticulitis. Stable 2 cm fat containing periumbilical hernia identified. Evidence of prior partial resection at the mid sigmoid level. Evaluation of the pelvis demonstrates partially collapsed normal bladder and evidence for prior hysterectomy. No pelvic fluid, adenopathy or recurrence/mass identified. A single retrocaval lymph node measuring 17 mm is again identified and appears relatively stable. No further adenopathy is appreciated. No ascites. No new mass lesion identified. Osseous structures demonstrate degenerative changes without acute focal abnormality. Impression: 1. Single stable retrocaval lymph node. No further evidence for metastatic disease or recurrence. No ascites. No no adenopathy. No new mass lesion. 2. Chronic stable changes including right renal cysts and diverticulosis. Electronically Signed by Frank Bowles MD 12/10/2019 08:44 A
== END ==
LOC: M RAD 08:14
PROVIDERS: ATTEND Internal Medicine Medical Oncology
DX: C56.9 Malignant neoplasm of unspecified ovary (principal)

== ENCOUNTER → 2020-03-28 | Outpatient (CLI) | payer MEDICARE, MEDICAID ==
--- NOTE | 2020-03-28 14:15 | REP ---
REASON: History of ovarian carcinoma. The latest prior for comparison is 12/10/2019 with others reviewed as well. The lack of intravenous contrast decreases the sensitivity of the exam. Oral bowel preparatory contrast was also withheld further limiting the exam. The lung bases are unchanged from the chest CT of 12/10/2019. The liver, spleen, pancreas, adrenal glands, and kidneys are unchanged. There are right renal cysts status quo. The abdominal aorta and para-aortic regions are unchanged. There is a retrocaval lymph node which is enlarged and stable with its short axis dimension approximately 1.7 cm status quo. There is descending colon and diverticulosis status quo. The bowel loops and their mesenteries are essentially unchanged. There is no evidence of an intra-abdominal mass. There is no free fluid or free air. Surgical clips are again seen in the gallbladder fossa from previous cholecystectomy. There is no change in the appearance of the pelvic bowel loops. There is sigmoid colon diverticulosis status quo. There is no evidence of a pelvic mass or adenopathy. There is no free fluid or free air in the pelvis. Bone window technique throughout the examination shows chronic spinal degenerative changes status quo. IMPRESSION: No evidence of acute disease or significant change compared to the prior exam with findings as described above. Electronically Signed by Zachery Amaya DO 03/28/2020 03:12 P
== END ==
LOC: M RAD 10:25
PROVIDERS: ATTEND Internal Medicine Medical Oncology
DX: C56.9 Malignant neoplasm of unspecified ovary (principal); N28.1 Cyst of kidney, acquired

== ENCOUNTER → 2020-06-27 | Outpatient (REF) | payer MEDICARE, MEDICAID ==
[~2020-06-27] MED LIST changes: +FURO40TA2 PO; +PANT40TA29 PO; -PANT40TA3 PO; +POTA1TAB14 PO
[2020-06-27 16:17] LABS: ALBUMIN 3.7 GM/DL (3.2-5.2); BILIRUBIN,TOTAL 0.2 MG/DL (0.2-1.0); CALCIUM LEVEL 9.9 MG/DL (8.8-10.2); CREATININE FOR GFR 1.72 MG/DL (0.55-1.30); GLOMERULAR FILTRATION RATE 30.5 (>39); POTASSIUM SERUM 4.1 MEQ/L (3.5-5.1); TOTAL PROTEIN 6.4 GM/DL (6.4-8.2)
== END ==
LOC: M LABDRWAD 10:40
PROVIDERS: ATTEND Physician Assistant
DX: N18.9 Chronic kidney disease, unspecified (principal)

== ENCOUNTER → 2020-07-27 | Outpatient (CLI) | payer MEDICARE, MEDICAID ==
--- NOTE | 2020-08-02 15:04 | REP ---
CT CHEST WITHOUT CONTRAST: HISTORY: Peritoneal carcinoma. COMPARISON: Chest CT study from 12/10/19. FINDINGS: Digital preliminary impregnator carbon products radiograph demonstrates an Infusaport catheter. The lungs are well-inflated and free of infiltrate. No pleural or pericardial effusion is seen. No pulmonary nodule or mass lesion is observed. No hilar or mediastinal mass or adenopathy is seen. No abnormal adrenal lesion. There is a cyst in the upper pole of the right kidney. No bony destructive lesion. IMPRESSION: No evidence of mass or adenopathy. Findings unchanged. MTDD
--- NOTE | 2020-08-02 15:05 | REP ---
CT ABDOMEN AND PELVIS WITHOUT INTRAVENOUS (IV) OR ORAL CONTRAST HISTORY: Peritoneal carcinoma. COMPARISON: CT study from 03/28/2020. Prior study from 12/10/[address] FINDINGS: The liver and spleen remain normal in size and homogeneous in texture. The gallbladder is surgically absent. No abnormality is noted in the pancreas. Normal adrenal glands are seen. There are two right renal cortical cysts again noted. Left colonic diverticulosis is again seen unchanged. The uterus is surgically absent. The urinary bladder is unremarkable. There is no evidence of abdominal or pelvis ascites. The previously noted 2 cm right retrocaval lymph node is again visible unchanged from 12/10/2019 prior study. No new retroperitoneal adenopathy or mass lesion is observed. No bony destructive lesion is seen. No abdominal wall defect is observed. IMPRESSION: Stable intraabdominal findings. A 2 cm right retrocaval lymph node persists unchanged. MTDD
== END ==
LOC: M RAD 10:57
PROVIDERS: ATTEND Internal Medicine Medical Oncology
DX: C48.2 Malignant neoplasm of peritoneum, unspecified (principal); R59.0 Localized enlarged lymph nodes

== ENCOUNTER → 2020-08-31 | Outpatient (REF) | payer MEDICARE, MEDICAID ==
[2020-08-31 17:33] LABS: HEMATOCRIT 35.9 % (36.0-47.0); HEMOGLOBIN 11.5 g/dl (12.0-15.5); MEAN CORPUSCULAR HEMOGLOBIN 30.3 pg (27.0-33.0); MEAN CORPUSCULAR VOLUME 94.5 fl (80.0-96.0); PLATELET COUNT, AUTOMATED 233 10^3/uL (150-450); WHITE BLOOD COUNT 7.1 10^3/uL (4.0-10.0)
[2020-08-31 17:48] LABS: ALBUMIN 3.9 GM/DL (3.2-5.2); BILIRUBIN,TOTAL 0.4 MG/DL (0.2-1.0); CREATININE FOR GFR 1.64 MG/DL (0.55-1.30); GLOMERULAR FILTRATION RATE 32.1 (>32); POTASSIUM SERUM 4.2 MEQ/L (3.5-5.1); TOTAL PROTEIN 6.5 GM/DL (6.4-8.2)
== END ==
LOC: M SFHCADAM 11:55
PROVIDERS: ATTEND Physician Assistant
DX: I12.9 Hypertensive chronic kidney disease with stage 1 through stage 4 chronic kidney disease, or unspecified chronic kidney disease (principal); N18.32 Chronic kidney disease, stage 3b
CPT/HCPCS: 80053; 85027; G0463

== ENCOUNTER → 2020-09-15 | Outpatient (REF) | payer MEDICARE, MEDICAID ==
[2020-09-15 13:29] LABS: APPEARANCE, URINE CLEAR (CLEAR); BACTERIA, URINE AUTO 1+ (NEGATIVE); BILIRUBIN, URINE AUTO NEGATIVE (NEGATIVE); BLOOD, URINE BLOOD NEGATIVE (NEGATIVE); COLOR, URINE YELLOW (YELLOW); GLUCOSE, URINE (UA) AUTO NEGATIVE (NEGATIVE); KETONE, URINE AUTO NEGATIVE (NEGATIVE); LEUKOCYTE ESTERASE, URINE AUTO NEGATIVE (NEGATIVE); MUCUS, URINE SMALL (NEGATIVE); NITRITE, URINE AUTO NEGATIVE (NEGATIVE); PROTEIN, URINE AUTO 1+ mg/dL (NEGATIVE); RBC, URINE AUTO 0 /HPF (0-3); SPECIFIC GRAVITY URINE AUTO 1.009 (1.002-1.035); SQUAMOUS EPITHELIAL CELL UR AU 1 /HPF (0-6); UROBILINOGEN, URINE AUTO 0.2 mg/dL (0.0-2.0); WBC, URINE AUTO 1 /HPF (0-3)
[2020-09-15 13:48] LABS: HEMOGLOBIN A1c 5.7 %
[2020-09-15 14:12] LABS: MAU/CREAT RATIO 991.1 MCG/MG (0.0-30.0)
== END ==
LOC: M SFHCADAM 10:55
PROVIDERS: ATTEND Physician Assistant
DX: N18.32 Chronic kidney disease, stage 3b (principal); R73.9 Hyperglycemia, unspecified

== ENCOUNTER → 2020-11-09 | Outpatient (CLI) | payer MEDICARE, MEDICAID ==
[~2020-11-09] MED LIST changes: +CARV3.12 PO; +D31000TA2 PO; +GABA-282 PO; -GABA-843 PO; +IRON65TA2 PO
--- NOTE | 2020-11-10 04:56 | REP ---
INDICATION: RIGHT WRIST AND HAND PAIN COMPARISON: None. TECHNIQUE: AP, lateral, bilateral oblique views right wrist. FINDINGS: Cortical irregularity, joint space narrowing, small amounts of chondrocalcinosis and very subtle chronic subluxation noted at the 1st carpometacarpal joint and at the radiocarpal joint space. Age-related pancarpal degenerative changes are also noted including subchondral sclerosis with areas of joint space narrowing. No fracture or dislocation. IMPRESSION: Moderate age-related degenerative changes primarily involving the 1st carpometacarpal joint and radiocarpal joint space. <Electronically signed by Frank Bowles > 11/10/20 [id number]
--- NOTE | 2020-11-10 05:05 | REP ---
INDICATION: RIGHT WRIST AND HAND PAIN COMPARISON: None. TECHNIQUE: AP, lateral, bilateral oblique views right hand. FINDINGS: Moderate age-related osteoarthritic degenerative changes include subchondral sclerosis, joint space narrowing, and marginal spurring/osteophyte formation primarily involving the interphalangeal joints and most notably the 1st interphalangeal joint, 1st metacarpophalangeal joint, as well as the 2nd and 3rd proximal and distal interphalangeal joints. Subchondral sclerosis and joint space narrowing also identified at the carpometacarpal joints. IMPRESSION: Moderate age-related osteoarthritic degenerative changes. No acute fracture or dislocation. <Electronically signed by Frank Bowles > 11/10/20 [id number]
== END ==
LOC: M ADAMS 11:36
PROVIDERS: ATTEND Physician Assistant
DX: M19.041 Primary osteoarthritis, right hand (principal); M19.031 Primary osteoarthritis, right wrist; M25.531 Pain in right wrist
CPT/HCPCS: 73110; 73130; G0463

== ENCOUNTER → 2020-12-11 | Outpatient (CLI) | payer MEDICARE, MEDICAID ==
[~2020-12-11] MED LIST changes: +GASTROGRAFIN SOLUTION 30ML (Q9963) As Ordered ONE; -LISI-538 PO; +LISI20TA33 PO
--- NOTE | 2020-12-11 10:38 | REP ---
INDICATION: OVARION CANCER COMPARISON: 07/27/2020, 09/30/2018 TECHNIQUE: Axial noncontrast images from the thoracic inlet to the upper abdomen with coronal and sagittal reformations. This CT examination was performed using the following dose reduction techniques: Automated exposure control, adjustment of mA and/or kv according to the patient's size, and use of iterative reconstruction technique. FINDINGS: Lung cedeno are well aerated. Small scattered noncalcified densities are appreciated similar to prior examination. Of note, a 5 mm subpleural nodule along the posterior left lower lobe (image 50) appears slightly increased in size when compared through 2018. No consolidation, large significant nodule or mass lesion otherwise appreciated. No effusion. No pneumothorax. Tracheobronchial tree is patent. No significant axillary, hilar, or mediastinal adenopathy. Atherosclerotic changes to the thoracic aorta and coronary arteries again noted without aneurysm or cardiomegaly. No pericardial effusion. [id number] identified with tip in the SVC. Musculoskeletal structures intact and without acute osseous abnormality. IMPRESSION: 1. Minimal chronic changes with few scattered small nodules up to 3 mm similar to prior examination 2. 5 mm subpleural nodule in the posterior left lower lobe which may be minimally increased as compared through 2018 and is nonspecific in appearance. <Electronically signed by Frank Bowles > 12/11/20 [id number]
--- NOTE | 2020-12-11 10:49 | REP ---
INDICATION: OVARION CANCER COMPARISON: 07/27/2020 TECHNIQUE: Axial noncontrast images from the lung bases to the pubic symphysis with coronal and sagittal reformations. This CT examination was performed using the following dose reduction techniques: Automated exposure control, adjustment of mA and/or kv according to the patient's size, and use of iterative reconstruction technique. FINDINGS: Liver, spleen, pancreas, and bilateral adrenal glands are normal by noncontrast evaluation. The kidneys demonstrate rounded hypo and isodense lesions similar to prior examination and likely representing simple and complex cysts along with mild chronic perinephric stranding. No hydronephrosis or nephrolithiasis.. The enteric system is unremarkable and without obstruction or acute inflammatory process. Colonic and sigmoid diverticulosis noted without acute diverticulitis. Evidence for prior partial sigmoid resection and anastomosis. Pelvis demonstrates normal bladder and prior hysterectomy. No ascites. No free air. Single retrocaval lymph node measuring approximately 2 cm again noted and unchanged. No further adenopathy appreciated. No focal inflammatory stranding. Abdominal aorta without aneurysm. Musculoskeletal structures demonstrate degenerative changes without acute osseous abnormality. IMPRESSION: No acute abdominopelvic pathology appreciated. Diverticulosis. Single retrocaval lymph node unchanged. <Electronically signed by Frank Bowles > 12/11/20 [id number]
== END ==
LOC: M RAD 08:39
PROVIDERS: ATTEND Internal Medicine Medical Oncology
DX: C56.9 Malignant neoplasm of unspecified ovary (principal)
CPT/HCPCS: 71250; 74176; Q9963

== ENCOUNTER → 2021-03-23 | Outpatient (CLI) | payer MEDICARE, MEDICAID ==
[~2021-03-23] MED LIST changes: -GASTROGRAFIN SOLUTION 30ML (Q9963) As Ordered ONE
== END ==
LOC: M LABSMTC 11:05
PROVIDERS: ATTEND Family Medicine
DX: Z20.828 Contact with and (suspected) exposure to other viral communicable diseases (principal); Z11.59 Encounter for screening for other viral diseases
CPT/HCPCS: C9803; U0003

== ENCOUNTER → 2021-03-29 | Outpatient (CLI) | payer MEDICARE, MEDICAID ==
[~2021-03-29] MED LIST changes: +GASTROGRAFIN SOLUTION 30ML (Q9963) As Ordered ONE
--- NOTE | 2021-03-29 13:30 | REP ---
INDICATION: OVARION CA COMPARISON: Multiple the latest 12/11/2020 also without contrast TECHNIQUE: Limited standard helical technique without intravenous contrast administration. FINDINGS: Limited evaluation of the mediastinum and pulmonary jenny shows no evidence of significant change compared to the prior exam. There is no evidence of a mass or adenopathy. There are no pleural or pericardial effusions. There is no significant change in appearance of the imaged osseous structures. Evaluation of the lung cedeno shows no new abnormal nodules, masses, or opacities. All nodules seen previously are stable. There is no change in the position of the MediPort device with the tip remaining in the superior vena cava. IMPRESSION: Stable CT examination of the chest. <Electronically signed by Zachery Amaya > 03/29/21 [id number]
--- NOTE | 2021-03-29 13:39 | REP ---
INDICATION: OVARION CA. COMPARISON: Multiple latest 12/11/2020 TECHNIQUE: Limited noncontrast enhanced CT examination of the abdomen and pelvis. No intravenous contrast was administered. Oral bowel preparatory contrast was administered prior to the exam. FINDINGS: The liver, spleen, pancreas, adrenal glands, and kidneys are unchanged. Right renal cysts are again noted and appear stable. The abdominal aorta and para aortic regions are essentially unchanged. No adenopathy has developed. There is no free fluid or free air. There is no significant change in appearance of the bowel loops or the mesenteries. Postoperative changes are again seen in the sigmoid colon status quo. There is no evidence of a mass or adenopathy. There is no significant change in the appearance of the imaged osseous structures. IMPRESSION: No significant change compared to the prior exam with findings as described above. There is no evidence of acute disease on this limited exam. <Electronically signed by Zachery Amaya > 03/29/21 [id number]
== END ==
LOC: M RAD 11:39
PROVIDERS: ATTEND Internal Medicine Medical Oncology
DX: C56.9 Malignant neoplasm of unspecified ovary (principal)
CPT/HCPCS: 71250; 74176; Q9963

== ENCOUNTER → 2021-10-02 | Outpatient (CLI) | payer MEDICARE, MEDICAID ==
[~2021-10-02] MED LIST changes: -GASTROGRAFIN SOLUTION 30ML (Q9963) As Ordered ONE
--- NOTE | 2021-10-02 13:20 | REP ---
INDICATION: PERITONEAL CA. COMPARISON: CT abdomen pelvis with oral contrast only, 03/29/2021. TECHNIQUE: Imaging protocol: Computed tomography of the abdomen and pelvis without IV contrast. Contiguous 3 mm thick axial projection images were obtained through the abdomen and pelvis. 2D sagittal and coronal reconstructions were performed. Radiation optimization: All CT scans at this facility use at least one of these dose optimization techniques: automated exposure control; mA and/or kV adjustment per patient size (includes targeted exams where dose is matched to clinical indication); or iterative reconstruction. FINDINGS: Heart and lung bases: The lung bases are clear. There are no pleural effusions. The heart size is normal. There is no pericardial effusion. There is calcific vascular disease of the thoracic aorta. Liver: Normal unenhanced appearance. Gallbladder: Surgically absent. Spleen: Normal unenhanced appearance. There is a 10 mm in diameter calcified splenic artery aneurysm. Pancreas: Normal unenhanced appearance. Adrenal glands: Normal unenhanced appearance. Kidneys/bladder: There are stable cortical cysts in the right kidney. The urinary bladder has a normal unenhanced appearance. Pelvic structures: The uterus and ovaries are surgically absent. There is no free fluid the pelvis. There is no pelvic or inguinal lymphadenopathy. GI tract: There is moderate descending colonic and sigmoid diverticulosis without diverticulitis. There is scattered diverticuli throughout the remainder of the colon. There is a staple line across the mid sigmoid colon. The colo colonic anastomosis is unremarkable. The appendix is not demonstrated. Abdominal wall and mesentery: There are no abdominal wall defects. There is no mesenteric or retroperitoneal lymphadenopathy. Abdominal aorta and vascular structures: There is calcific vascular disease of the abdominal aorta. Bony structures: There is multilevel degenerative disc disease of the lower thoracic and lumbar spine most severe at the T12-L1, L1-2 and L4-5 levels. There is degenerative grade 1 anterolisthesis of L4 on L5. There is mild dextroscoliosis of the thoracolumbar spine. There is mild arthritis of both SI joints and both hips. IMPRESSION: 1. No evidence of neoplastic disease. 2. Colonic diverticulosis without diverticulitis. 3. Stable colo colonic anastomosis. 4. Stable cortical cysts in the right kidney. 5. Other findings as noted, not significantly changed. <Electronically signed by Oliverio Tinsley > 10/02/21 [id number]
--- NOTE | 2021-10-02 13:35 | REP ---
INDICATION: PERITONEAL CA. COMPARISON: None. TECHNIQUE: Imaging protocol: Computed tomography of the chest without IV contrast. Contiguous 3 mm thick axial projection images were obtained through the chest. 2D sagittal and coronal reconstructions were performed. Radiation optimization: All CT scans at this facility use at least one of these dose optimization techniques: automated exposure control; mA and/or kV adjustment per patient size (includes targeted exams where dose is matched to clinical indication); or iterative reconstruction. FINDINGS: Lower neck: The thyroid gland is heterogeneous without discrete nodules. Mediastinum: No abnormal masses or lymphadenopathy. Heart/thoracic aorta: The heart size is normal. There is no pericardial effusion. 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 Upper abdomen: See CT abdomen and pelvis report, same day. Thoracic esophagus: Normal. Chest wall and axilla: There is a chemotherapy port in the right upper chest wall with the tip in the superior vena cava via the right internal jugular vein. The visualized breasts in soft tissues of the chest wall are otherwise unremarkable. There is no axillary lymphadenopathy. 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 There is a 13 x 10 x 7 mm left-sided epidural calcification, centered at the T6 level, which significantly displaces and compresses the thecal sac to the right. Lung parenchyma: There is a pleural based soft tissue density nodule over the lower lobe of the left lung posterolaterally, measuring 8 x 5 mm, not significantly changed (image 50). There is a pleural based soft tissue density nodule over the lower lobe of the left lung, laterally, measuring 6 x 2 mm, not significantly changed (image 69). There are no new pulmonary nodules or masses. There are no pleural effusions. IMPRESSION: 1. Stable pleural based nodules in the left lung, consistent with pleural lymph nodes. 2. There are no new pulmonary nodules or masses. 3. There are no pleural effusions. 4. Calcification in the spinal canal at the T6 level significantly compressing the thecal sac. 5. Other findings as noted, not significantly changed. <Electronically signed by Oliverio Tinsley > 10/02/21 [id number]
== END ==
LOC: M RAD 12:15
PROVIDERS: ATTEND Internal Medicine Medical Oncology
DX: C48.2 Malignant neoplasm of peritoneum, unspecified (principal)

== ENCOUNTER → 2021-11-29 | Outpatient (CLI) | payer MEDICARE, MEDICAID | LOC: M PLAIMG 10:25 | PROVIDERS: ATTEND Orthopaedic Surgery | DX: M54.50 Low back pain, unspecified (principal) ==

== ENCOUNTER → 2021-12-04 | Outpatient (REF) | payer MEDICARE, MEDICAID ==
[~2021-12-04] MED LIST changes: -D31000TA2 PO; +VITA100093 PO
[2021-12-04 13:00] LABS: BASO # 0.1 10^3/uL (0.0-0.2); BASO % 0.8 % (0.0-1.0); EOS # 0.3 10^3/uL (0.0-0.5); EOS % 3.8 % (0.0-3.0); HEMATOCRIT 34.3 % (36.0-47.0); HEMOGLOBIN 10.7 g/dl (12.0-15.5); LYMPH # 2.9 10^3/uL (1.5-5.0); LYMPH % 36.6 % (24.0-44.0); MEAN CORPUSCULAR HEMOGLOBIN 29.4 pg (27.0-33.0); MEAN CORPUSCULAR HGB CONC 31.2 g/dl (32.0-36.5); MEAN CORPUSCULAR VOLUME 94.2 fl (80.0-96.0); MONO # 0.6 10^3/uL (0.0-0.8); MONO % 7.8 % (2.0-8.0); NEUTROPHILS % 50.4 % (36.0-66.0); PLATELET COUNT, AUTOMATED 421 10^3/uL (150-450); RED BLOOD COUNT 3.64 10^6/uL (4.00-5.40); WHITE BLOOD COUNT 7.9 10^3/uL (4.0-10.0)
[2021-12-04 13:35] LABS: ALBUMIN 3.3 GM/DL (3.2-5.2); BILIRUBIN,TOTAL 0.2 MG/DL (0.2-1.0); CALCIUM LEVEL 9.7 MG/DL (8.8-10.2); CREATININE FOR GFR 1.63 MG/DL (0.55-1.30); GLOMERULAR FILTRATION RATE 32.2 (>32); POTASSIUM SERUM 5.3 MEQ/L (3.5-5.1); TOTAL PROTEIN 6.4 GM/DL (6.4-8.2)
== END ==
LOC: M SFHCADAM 11:03
PROVIDERS: ATTEND Physician Assistant
DX: L27.0 Generalized skin eruption due to drugs and medicaments taken internally (principal); N18.32 Chronic kidney disease, stage 3b

== ENCOUNTER → 2022-04-12 | Outpatient (CLI) | payer MEDICARE, MEDICAID ==
[~2022-04-12] MED LIST changes: +GASTROGRAFIN SOLUTION 30ML (Q9963) As Ordered ONE
== END ==
LOC: M RAD 09:36
PROVIDERS: ATTEND Internal Medicine Medical Oncology
DX: C56.9 Malignant neoplasm of unspecified ovary (principal); M85.88 Other specified disorders of bone density and structure, other site
CPT/HCPCS: 71250; 74176; Q9963

== ENCOUNTER → 2022-08-13 | Outpatient (CLI) | payer MEDICARE, MEDICAID ==
[~2022-08-13] MED LIST changes: -GASTROGRAFIN SOLUTION 30ML (Q9963) As Ordered ONE
== END ==
LOC: M RAD 12:16
PROVIDERS: ATTEND Physician Assistant
DX: N18.4 Chronic kidney disease, stage 4 (severe) (principal)

== ENCOUNTER → 2022-10-14 | Outpatient (CLI) | payer MEDICARE, MEDICAID | LOC: M RAD 10:53 | PROVIDERS: ATTEND Internal Medicine Medical Oncology | DX: C56.9 Malignant neoplasm of unspecified ovary (principal) ==

== ENCOUNTER → 2022-12-25 | Outpatient (CLI) | payer MEDICARE, MEDICAID ==
[2022-12-25 13:01] LABS: HEMATOCRIT 36.6 % (36.0-47.0); HEMOGLOBIN 11.9 g/dl (12.0-15.5); MEAN CORPUSCULAR HEMOGLOBIN 30.8 pg (27.0-33.0); MEAN CORPUSCULAR HGB CONC 32.5 g/dl (32.0-36.5); MEAN CORPUSCULAR VOLUME 94.8 fl (80.0-96.0); PLATELET COUNT, AUTOMATED 248 10^3/uL (150-450); RED BLOOD COUNT 3.86 10^6/uL (4.00-5.40); WHITE BLOOD COUNT 7.6 10^3/uL (4.0-10.0)
[2022-12-25 13:34] LABS: MAGNESIUM LEVEL 2.2 MG/DL (1.8-2.4)
[2022-12-25 13:36] LABS: FOLATE > 24.00 NG/ML (>5.4); VITAMIN B12 LEVEL 441 PG/ML (211-911)
== END ==
LOC: M WUC 09:55
PROVIDERS: ATTEND Physician Assistant
DX: I10 Essential (primary) hypertension (principal); N18.32 Chronic kidney disease, stage 3b; D50.9 Iron deficiency anemia, unspecified; R73.9 Hyperglycemia, unspecified

== ENCOUNTER → 2023-04-07 | Outpatient (CLI) | payer MEDICARE, MEDICAID ==
[~2023-04-07] MED LIST changes: +POTA-298 PO; -POTA1TAB14 PO
== END ==
LOC: M RAD 11:24
PROVIDERS: ATTEND Internal Medicine Medical Oncology
DX: C56.9 Malignant neoplasm of unspecified ovary (principal); C48.2 Malignant neoplasm of peritoneum, unspecified

== ENCOUNTER → 2023-12-01 | Outpatient (CLI) | payer MEDICARE, MEDICAID ==
[~2023-12-01] MED LIST changes: +AMLO1TAB24 PO; +SPIR-10 PO
== END ==
LOC: M PLAIMG 10:51
PROVIDERS: ATTEND Internal Medicine Medical Oncology
DX: C48.2 Malignant neoplasm of peritoneum, unspecified (principal); Z90.79 Acquired absence of other genital organ(s)

== ENCOUNTER 2024-02-20 10:34 | Emergency (ER) | payer MEDICARE, MEDICAID ==
[~2024-02-20] VITALS: Ht 167.6 cm; Wt 106.4 kg
[2024-02-20] MEDS: GABAPENTIN 300 MG CAP PO ONE (11:13)
[2024-02-20] MEDS: LIDOCAINE 5% (LIDODERM) PATCH TD ONE (11:14)
[2024-02-20] MEDS ORDERED: LIDO5DIS41 TOP (12:26)
[2024-02-20 12:38] VITALS: BP 121/60; TEMP 98.1; O2SAT 97
== END 2024-02-20 12:50 | disposition home or self-care (01) ==
LOC: M ED 10:34 → EDBD 10:34 → M ED 12:50
DX: M54.50 Low back pain, unspecified (principal); M43.16 Spondylolisthesis, lumbar region; I10 Essential (primary) hypertension; E78.5 Hyperlipidemia, unspecified; N18.9 Chronic kidney disease, unspecified; F17.200 Nicotine dependence, unspecified, uncomplicated; Z85.43 Personal history of malignant neoplasm of ovary; Z92.21 Personal history of antineoplastic chemotherapy; Z79.82 Long term (current) use of aspirin; Z79.83 Long term (current) use of bisphosphonates; Z79.891 Long term (current) use of opiate analgesic; Z79.899 Other long term (current) drug therapy

== ENCOUNTER → 2024-06-08 | Outpatient (CLI) | payer MEDICARE, MEDICAID ==
[~2024-06-08] MED LIST changes: +LIDO5DIS41 TOP
== END ==
LOC: M RAD 09:43
PROVIDERS: ATTEND Internal Medicine Medical Oncology
DX: C56.9 Malignant neoplasm of unspecified ovary (principal)

== ENCOUNTER → 2025-02-08 | Outpatient (CLI) | payer MEDICARE, MEDICAID ==
[~2025-02-08] MED LIST changes: +GABA-1172 PO; -GABA-282 PO
== END ==
LOC: M PLAIMG 09:01
PROVIDERS: ATTEND Internal Medicine Medical Oncology
DX: C48.2 Malignant neoplasm of peritoneum, unspecified (principal); I70.0 Atherosclerosis of aorta; N28.1 Cyst of kidney, acquired; R91.8 Other nonspecific abnormal finding of lung field

== ENCOUNTER → 2025-05-05 | Outpatient (CLI) | payer MEDICARE, MEDICAID ==
[~2025-05-05] MED LIST changes: +LIDO1ADH93 TOP; -LIDO5DIS41 TOP
== END ==
LOC: M WUC 11:12
PROVIDERS: ATTEND Family Medicine
DX: S80.01XA Contusion of right knee, initial encounter (principal); Y93.9 Activity, unspecified; Y92.9 Unspecified place or not applicable

== ENCOUNTER 2025-10-03 22:09 | Emergency (ER) | payer MEDICARE, MEDICAID ==
[~2025-10-03] VITALS: Ht 167.6 cm; Wt 105.9 kg
[2025-10-03 23:00] LABS: BASO # 0.0 10^3/uL (0.0-0.2); BASO % 0.6 % (0.0-1.0); EOS # 0.3 10^3/uL (0.0-0.5); EOS % 3.9 % (0.0-3.0); LYMPH # 3.3 10^3/uL (1.5-5.0); LYMPH % 48.4 % (24.0-44.0); MONO # 0.7 10^3/uL (0.0-0.8); MONO % 9.5 % (2.0-8.0); NEUTROPHILS # 2.6 10^3/uL (1.5-8.5); NEUTROPHILS % 37.5 % (36.0-66.0); PLATELET COUNT, AUTOMATED 181 10^3/uL (150-450)
[2025-10-03 23:22] LABS: CK-MB VALUE MASS < 1.0 NG/ML (<3.6)
[2025-10-03 23:25] LABS: ALT/SGPT 15 U/L (7.0-40); AST/SGOT 14 U/L (<34); CALCIUM LEVEL 8.5 MG/DL (8.3-10.6); CARBON DIOXIDE LEVEL 18 MMOL/L (20-31); CHLORIDE LEVEL 114 MMOL/L (98-107); CREATININE FOR GFR 3.08 MG/DL (0.55-1.30); GLOMERULAR FILTRATION RATE 14.3 (>32); POTASSIUM SERUM 5.0 MMOL/L (3.5-5.1); SODIUM LEVEL 141 MMOL/L (136-145)
[2025-10-03 23:28] LABS: CPK CREATINE PHOSPHOKINASE 32 U/L (34-145)
[2025-10-04 02:16] LABS: CK-MB VALUE MASS < 1.0 NG/ML (<3.6)
[2025-10-04 02:26] LABS: CPK CREATINE PHOSPHOKINASE 31 U/L (34-145)
[2025-10-04 05:59] LABS: CK-MB VALUE MASS < 1.0 NG/ML (<3.6)
[2025-10-04 06:00] LABS: CPK CREATINE PHOSPHOKINASE 26 U/L (34-145)
[2025-10-04] MEDS ORDERED: METH4PACK PO (07:11)
[2025-10-04] MEDS ORDERED: VENTAER INH (07:11)
[2025-10-04 07:30] VITALS: BP 161/80; TEMP 97.2; O2SAT 96
== END 2025-10-04 07:58 | disposition home or self-care (01) ==
LOC: M ED 22:09
DX: J20.9 Acute bronchitis, unspecified (principal); R06.02 Shortness of breath; R05.9 Cough, unspecified; E78.5 Hyperlipidemia, unspecified; I10 Essential (primary) hypertension; J44.9 Chronic obstructive pulmonary disease, unspecified; K21.9 Gastro-esophageal reflux disease without esophagitis; N18.30 Chronic kidney disease, stage 3 unspecified; F17.200 Nicotine dependence, unspecified, uncomplicated; F10.10 Alcohol abuse, uncomplicated; Z79.1 Long term (current) use of non-steroidal anti-inflammatories (NSAID); Z79.52 Long term (current) use of systemic steroids; Z79.899 Other long term (current) drug therapy; Z87.891 Personal history of nicotine dependence; Z96.652 Presence of left artificial knee joint